=== PATIENT | male | born 1985 | race Caucasian/White ===

== ENCOUNTER 2018-07-29 04:04 | Inpatient (IN) | payer SELFPAY ==
--- NOTE | 2018-07-29 04:19 | ED PDOC ---
Arrival/HPI - General Chief Complaint: Altered Mental Status Time Seen by Provider: 07/29/18 04:07 Historian: Patient, Spouse, EMS - History of Present Illness Narrative History of Present Illness (Text): 07/29/18 04:27 33 year old male, with no significant past medical history, who presents to the emergency department BIB EMS for seizure episode. Per , patient had been fasting for Ramadan and was complaining of headache late in the evening. She reports they were driving back from [facility] when he suddenly had a generalized seizure episode, in which she pulled over and called the ambulance. She reports after the seizure episode, he became confused, disoriented and could not recognize her. She denies any history of trauma. Symptom Onset: Gradual Symptom Course: Unchanged Activities at Onset: Light Context: Passenger Past Medical History - Provider Review Nursing Documentation Reviewed: Yes - Infectious Disease Hx of Infectious Diseases: None - Psychiatric Hx Substance Use: No Family/Social History - Physician Review Nursing Documentation Reviewed: Yes Family/Social History: Unknown Family HX Smoking Status: Heavy Smoker > 10 Cigarettes Daily Hx Alcohol Use: No Hx Substance Use: No Allergies/Home Meds Allergies/Adverse Reactions: Allergies No Known Allergies Allergy (Verified 07/29/18 04:16) Home Medications: Home Meds Medication Instructions Recorded Confirmed No Known Home Med 07/29/18 07/29/18 Review of Systems - Review of Systems Systems not reviewed;Unavailable: Other (Patient unable to respond) Physical Exam Vital Signs Reviewed: Yes Temperature: Afebrile Blood Pressure: Normal Pulse: Tachycardic Respiratory Rate: Normal Appearance: Positive for: Non-Toxic, Uncomfortable Pain Distress: None Mental Status: Positive for: Confused, other (Disoriented ) - Systems Exam Head: Present: Atraumatic, Normocephalic Pupils: Present: PERRL Extroacular Muscles: Present: EOMI Conjunctiva: Present: Normal Ears: Present: NORMAL TM Mouth: Present: Moist Mucous Membranes, Other (abrasions) Neck: Present: Normal Range of Motion Respiratory/Chest: Present: Clear to Auscultation, Good Air Exchange. No: Respiratory Distress, Accessory Muscle Use Cardiovascular: Present: Normal S1, S2, Tachycardic. No: Murmurs Abdomen: No: Tenderness, Distention, Peritoneal Signs Back: Present: Normal Inspection Upper Extremity: Present: Normal Inspection. No: Cyanosis, Edema Lower Extremity: Present: Normal Inspection. No: Edema Neurological: Present: CN II-XII Intact, Speech Normal, Motor Func Grossly Intact, Normal Sensory Function Skin: Present: Warm, Dry, Normal Color. No: Rashes Medical Decision Making ED Course and Treatment: 07/29/18 04:18 Impression: 33 year old male presents to the ED BIB ambulance for seizure episode. Differential Diagnosis included but are not limited to: Plan: -- CT Head -- EKG -- Labs -- Chest X-ray -- Ativan -- Iv fluids -- Reassess and disposition Prior Visits: Notes and results from previous visits were reviewed. Progress Notes: 07/29/18 04:24 Patient had a grand mal seizure episode in the ER. 07/29/18 04:48 EKG- Sinus [id number]@ [id number],no acute changes 07/29/18 04:49 CXR- No acute process 07/29/18 05:09 CT Head reviewed by radiologist TECHNIQUE: Axial and reformatted sagittal and coronal images of the brain obtained without IV contrast administration. Findings: Normal size of the ventricles and extra-axial spaces for the patient's age. Normal white matter tracts of the supratentorial brain. Normal basal ganglia and thalami. Normal brainstem. Normal cerebellum. There is no demonstrated extra-axial, intraparenchymal, or intraventricular hemorrhage. There are no findings of an acute ischemic infarction. Normal calvarium. There is no demonstrated fracture. Normal soft tissue structures. Normal visualized paranasal sinuses. IMPRESSION: Normal unenhanced CT scan of the brain. 07/29/18 05:17 Case was discussed with the senior medical transcriptionist and house MD Howell. - Scribe Statement The provider has reviewed the documentation as recorded by the Scribe [facility] All medical record entries made by the Scribe were at my direction and personally dictated by me. I have reviewed the chart and agree that the record accurately reflects my personal performance of the history, physical exam, medical decision making, and the department course for this patient. I have also personally directed, reviewed, and agree with the discharge instructions and disposition. Disposition/Present on Arrival - Present on Arrival Any Indicators Present on Arrival: No History of DVT/PE: No History of Uncontrolled Diabetes: No Urinary Catheter: No History of Decub. Ulcer: No History Surgical Site Infection Following: None - Disposition Have Diagnosis and Disposition been Completed?: Yes Diagnosis: New onset seizure, Altered mental status Disposition: HOSPITALIZED Disposition Time: 05:17 Patient Plan: Admission Condition: STABLE Referrals: PCP,NO [Primary Care Provider] - Follow up with primary Forms: [place] (Thai)
[2018-07-29] MEDS ORDERED: Fosphenytoin 1,000 MG in Sodium Chloride 0.9% 50 ML IV STA (04:26)
[2018-07-29 04:39] LABS: INR 0.91; PARTIAL THROMBOPLASTIN TIME 32.1 Seconds (26.9-38.3); PROTHROMBIN TIME 10.1 SECONDS (9.4-12.5)
[2018-07-29 05:10] LABS: HEMOGLOBIN 17.9 g/dL (14.0-18.0); MEAN CELL VOLUME 85.3 fl (80.0-105.0); MEAN CORPUSCULAR HEMOGLOBIN 29.9 pg (25.0-35.0); MEAN CORPUSCULAR HGB CONC 35.1 g/dl (31.0-37.0); MEAN PLATELET VOLUME 10.1 fl (7.0-11.0); RBC 5.98 10^6/uL (3.5-6.1); RED CELL DISTRIBUTION WIDTH 12.4 % (11.5-14.5); WHITE BLOOD COUNT 14.3 10^3/uL (4.5-11.0)
[2018-07-29 05:36] LABS: BLOOD UREA NITROGEN 23 mg/dL (7-21); CALCIUM 9.1 mg/dL (8.4-10.5); GFR NON-AFRICAN AMERICAN > 60
[2018-07-29] MEDS ORDERED: Sodium Chloride 0.9% 1,000 ML IV STA (05:43)
[2018-07-29] MEDS ORDERED: Sodium Chloride 0.9% 1,000 ML IV SCH (05:45)
--- NOTE | 2018-07-29 06:31 | CP.PCM.HP ---
<Julien Jones - Last Filed: 07/29/18 07:20> History of Present Illness - History of Present Illness History of Present Illness: HISTORY & PHYSICAL NOTE FOR HOSPITALIST SERVICE JULIEN JONES PGY1 33 y/o M with no significant PMH presents to ED after new onset witnessed seizure brought in by jairo. 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 Pt had not ate/drank anything all day and had broken his fast around 8pm. He slept for about 3 hours and then awoke. When he awoke, he complained of headache, when fikalie had given him ibuprofen. Pt was subsquently called in for a case. Pt's fiance was driving him to work around 1am when she noticed that pt had become non-responsive and subsequently had tonic-clonic convulsions of his extremities. She noticed foaming of the mouth and tongue biting. No urinary/bowel incontinence was noted. Jairo had subsequently driven to [facility] ED. In ED, patient remained post-ictal, He had received ativan and phosphenytoin in ED. Upon interview, pt was restless and unable to provide ROS. PMH: None All: NKDA PSH: none SH: smokes cigarettes regulary, no ETOH, drug use Hosp: none FH: M: HTN, F: HTN, DM2 Meds: none PMD: None Present on Admission - Present on Admission Any Indicators Present on Admission: No Review of Systems - Review of Systems Review of Systems: per HPI Past Patient History - Infectious Disease Hx of Infectious Diseases: None - Past Social History Smoking Status: Heavy Smoker > 10 Cigarettes Daily - PSYCHIATRIC Hx Substance Use: No Meds Allergies/Adverse Reactions: Allergies Allergy/AdvReac Type Severity Reaction Status Date / Time No Known Allergies Allergy Verified 07/29/18 04:16 Physical Exam - Constitutional Appears: Agitated, Confused - Head Exam Head Exam: NORMAL INSPECTION, NORMOCEPHALIC - Eye Exam Eye Exam: PERRL - ENT Exam ENT Exam: Mucous Membranes Dry Additional comments: healing tongue ulcers - Neck Exam Neck exam: Positive for: Normal Inspection - Respiratory Exam Respiratory Exam: Clear to Auscultation Bilateral, NORMAL BREATHING PATTERN - Cardiovascular Exam Cardiovascular Exam: REGULAR RHYTHM, +S1, +S2 - GI/Abdominal Exam GI & Abdominal Exam: Soft. absent: Tenderness - Extremities Exam Extremities exam: Positive for: normal inspection. Negative for: calf tenderness - Back Exam Back exam: NORMAL INSPECTION. absent: CVA tenderness (L), CVA tenderness (R) - Neurological Exam Neurological exam: Altered - Psychiatric Exam Psychiatric exam: Agitated - Skin Skin Exam: Dry, Warm Results - Vital Signs Recent Vital Signs: Last Vital Signs Temp 98.0 F 07/29/18 04:21 Pulse 98 H 07/29/18 05:54 Resp 24 07/29/18 05:54 BP 124/82 07/29/18 05:54 Pulse Ox 97 07/29/18 05:54 - Labs Result Diagrams: 07/29/18 04:58 07/29/18 04:58 Labs: Laboratory Results - last 24 hr 07/29/18 07/29/18 07/29/18 04:15 04:58 04:58 WBC 14.3 H RBC 5.98 Hgb 17.9 Hct 51.0 MCV 85.3 MCH 29.9 MCHC 35.1 RDW 12.4 Plt Count 237 MPV 10.1 PT 10.1 INR 0.91 APTT 32.1 BUN 23 H Creatinine 1.2 Est GFR ( Amer) > 60 Est GFR (Non-Af Amer) > 60 Random Glucose 106 Calcium 9.1 Total Bilirubin 0.9 Total Creatine Kinase 181 Alcohol, Quantitative 07/29/18 04:58 WBC RBC Hgb Hct MCV MCH MCHC RDW Plt Count MPV PT INR APTT BUN Creatinine Est GFR ( Amer) Est GFR (Non-Af Amer) Random Glucose Calcium Total Bilirubin Total Creatine Kinase Alcohol, Quantitative < 10 Assessment & Plan - Assessment and Plan (Free Text) Assessment: 33 y/o M with no PMH presenting for new-onset seizure Plan: New Onset Seizure currently post-ictal. CTH: negative s/p 4mg Ativan in ED. Fosphenytoin in ED continue ativan 2Q4 prn adminster 1L IVF bolus continue maintainence IVF @100mls/hr f/u EEG, Utox seizure/aspiration precautions Neurology consulted DVT/GI PPx: SCD/Protonix Case reviewed with attending physician, Dr. Stewart <Pranay Stewart - Last Filed: 07/29/18 10:17> Results - Vital Signs Recent Vital Signs: Last Vital Signs Temp 98.0 F 07/29/18 04:21 Pulse 98 H 05/07/19 05:54 Resp 24 07/29/18 05:54 BP 124/82 07/29/18 05:54 Pulse Ox 97 07/29/18 05:54 - Labs Result Diagrams: 07/29/18 04:58 07/29/18 04:58 Labs: Laboratory Results - last 24 hr 07/29/18 07/29/18 07/29/18 04:10 04:10 04:15 WBC RBC Hgb Hct MCV MCH MCHC RDW Plt Count MPV PT 10.1 INR 0.91 APTT 32.1 Sodium Potassium Chloride Carbon Dioxide Anion Gap BUN Creatinine Est GFR ( Amer) Est GFR (Non-Af Amer) Random Glucose Calcium Phosphorus Magnesium Total Bilirubin AST ALT Alkaline Phosphatase Lactate Dehydrogenase Total Creatine Kinase Troponin I Total Protein Albumin Globulin Albumin/Globulin Ratio Urine Color Yellow Urine Appearance Clear Urine pH 6.0 Ur Specific [place] 1.025 Urine Protein Trace H Urine Glucose (UA) Negative Urine Ketones Negative Urine Blood Negative Urine Nitrate Negative Urine Bilirubin Negative Urine Urobilinogen 0.2 Ur Leukocyte Esterase Trace H Urine RBC 0 - 2 Urine WBC 2 - 5 Ur Epithelial Cells 1 - 3 Urine Bacteria Few Urine Opiates Screen Negative Urine Methadone Screen Negative Ur Barbiturates Screen Negative Ur Phencyclidine Scrn Negative Ur Amphetamines Screen Negative U Benzodiazepines Scrn Negative U Oth Cocaine Metabols Negative U Cannabinoids Screen Negative Alcohol, Quantitative 07/29/18 07/29/18 07/29/18 04:58 04:58 04:58 WBC 14.3 H RBC 5.98 Hgb 17.9 Hct 51.0 MCV 85.3 MCH 29.9 MCHC 35.1 RDW 12.4 Plt Count 237 MPV 10.1 PT INR APTT Sodium 142 Potassium 4.5 Chloride 104 Carbon Dioxide 13 L Anion Gap 29 H BUN 23 H Creatinine 1.2 Est GFR ( Amer) > 60 Est GFR (Non-Af Amer) > 60 Random Glucose 106 Calcium 9.1 Phosphorus Magnesium Total Bilirubin 0.9 AST 61 H ALT 23 Alkaline Phosphatase 70 Lactate Dehydrogenase 832 H Total Creatine Kinase 181 Troponin I < 0.01 Total Protein 8.8 H Albumin 5.2 H Globulin 3.6 Albumin/Globulin Ratio 1.5 Urine Color Urine Appearance Urine pH Ur Specific [place] Urine Protein Urine Glucose (UA) Urine Ketones Urine Blood Urine Nitrate Urine Bilirubin Urine Urobilinogen Ur Leukocyte Esterase Urine RBC Urine WBC Ur Epithelial Cells Urine Bacteria Urine Opiates Screen Urine Methadone Screen Ur Barbiturates Screen Ur Phencyclidine Scrn Ur Amphetamines Screen U Benzodiazepines Scrn U Oth Cocaine Metabols U Cannabinoids Screen Alcohol, Quantitative < 10 07/29/18 07/29/18 04:58 04:58 WBC RBC Hgb Hct MCV MCH MCHC RDW Plt Count MPV PT INR APTT Sodium Potassium Chloride Carbon Dioxide Anion Gap BUN Creatinine Est GFR ( Amer) Est GFR (Non-Af Amer) Random Glucose Calcium Phosphorus 5.1 H Magnesium 2.5 H Total Bilirubin AST ALT Alkaline Phosphatase Lactate Dehydrogenase Total Creatine Kinase 185 Troponin I Total Protein Albumin Globulin Albumin/Globulin Ratio Urine Color Urine Appearance Urine pH Ur Specific [place] Urine Protein Urine Glucose (UA) Urine Ketones Urine Blood Urine Nitrate Urine Bilirubin Urine Urobilinogen Ur Leukocyte Esterase Urine RBC Urine WBC Ur Epithelial Cells Urine Bacteria Urine Opiates Screen Urine Methadone Screen Ur Barbiturates Screen Ur Phencyclidine Scrn Ur Amphetamines Screen U Benzodiazepines Scrn U Oth Cocaine Metabols U Cannabinoids Screen Alcohol, Quantitative Attending/Attestation - Attestation I have personally seen and examined this patient.: Yes I have fully participated in the care of the patient.: Yes I have reviewed all pertinent clinical information: Yes
[2018-07-29 06:43] LABS: URINE BILIRUBIN NEGATIVE (NEGATIVE); URINE BLOOD NEGATIVE (NEGATIVE); URINE GLUCOSE (UA) NEGATIVE (NEGATIVE); URINE LEUKOCYTE ESTERASE TRACE Leu/uL (NEGATIVE); URINE PROTEIN TRACE mg/dL (<30 mg/dL); URINE UROBILINOGEN 0.2 E.U./dL (<1 E.U./dL)
[2018-07-29 06:44] LABS: ALB/GLOB RATIO 1.5 (1.1-1.8); ALBUMIN 5.2 g/dL (3.0-4.8); ALT/SGPT 23 U/L (7-56); AST/SGOT 61 U/L (17-59); TROPONIN I < 0.01 ng/mL
[2018-07-29 06:45] LABS: BARBITURATES, UR NEGATIVE (NEGATIVE); BENZODIAZEPINES, UR NEGATIVE (NEGATIVE); OPIATES, UR NEGATIVE (NEGATIVE); PHENCYCLIDINE, UR NEGATIVE (NEGATIVE)
[2018-07-29 06:49] LABS: URINE APPEARANCE CLEAR (CLEAR); URINE COLOR YELLOW (YELLOW)
[2018-07-29 06:56] LABS: URINE BACTERIA FEW /hpf; URINE RBC 0 - 2 /hpf (0-2)
--- NOTE | 2018-07-29 08:55 | CARD ---
APPROVED REPORT Date of service: 07/29/2018 EKG Measurement Heart [id number] <Conclusion> Sinus tachycardia Otherwise normal ECG
--- NOTE | 2018-07-29 09:08 | RAD ---
Date of service: 07/29/2018 PROCEDURE: CHEST RADIOGRAPH, 1 VIEW HISTORY: seizure/ams COMPARISON: None available. FINDINGS: LUNGS: Clear. PLEURA: No pneumothorax or pleural fluid seen. CARDIOVASCULAR: No aortic atherosclerotic calcification present. Normal. OSSEOUS STRUCTURES: No significant abnormalities. VISUALIZED UPPER ABDOMEN: Normal. OTHER FINDINGS: None. IMPRESSION: No active disease.
--- NOTE | 2018-07-29 09:10 | CT ---
Date of service: 07/29/2018 PROCEDURE: CT HEAD WITHOUT CONTRAST. HISTORY: seizure/ams COMPARISON: None available. TECHNIQUE: Axial computed tomography images were obtained through the head/brain without intravenous contrast. Radiation dose: Total exam DLP = 819.63 mGy-cm. This CT exam was performed using one or more of the following dose reduction techniques: Automated exposure control, adjustment of the mA and/or kV according to patient size, and/or use of iterative reconstruction technique. FINDINGS: HEMORRHAGE: No intracranial hemorrhage. BRAIN: No mass effect or edema. No atrophy or chronic microvascular ischemic changes. VENTRICLES: Unremarkable. No hydrocephalus. CALVARIUM: Unremarkable. PARANASAL SINUSES: Unremarkable as visualized. No significant inflammatory changes. MASTOID AIR CELLS: Unremarkable as visualized. No inflammatory changes. OTHER FINDINGS: The report concurs with the preliminary [facility] report IMPRESSION: No acute intracranial findings
[2018-07-29] MEDS ORDERED: levETIRAcetam 1000mg/100ml NS 100 ML IV ONE (09:14)
[2018-07-29] MEDS ORDERED: Gadodiamide 287 MG/ML VIAL (15ML) IV ONE (10:58)
--- NOTE | 2018-07-29 12:08 | RAD ---
Date of service: 07/29/2018 PROCEDURE: Radiographs of the Left Shoulder HISTORY: shoulder pain COMPARISON: No prior. TECHNIQUE: 3 views obtained. FINDINGS: BONES: There is a comminuted fracture of the scapula with vertical and transverse components. JOINTS: Normal. Glenohumeral and acromioclavicular joints preserved. No osteoarthritis. SOFT TISSUES: Normal. OTHER FINDINGS: None. IMPRESSION: There is a comminuted fracture of the scapula with vertical and transverse components.
--- NOTE | 2018-07-29 12:22 | MRI ---
Date of service: 07/29/2018 PROCEDURE: MRI BRAIN WITH AND WITHOUT CONTRAST HISTORY: New Onset Seizure COMPARISON: None available. TECHNIQUE: Multiplanar, multisequence MR images of the brain were obtained with and without intravenous contrast enhancement. 15 cc of Omniscan FINDINGS: HEMORRHAGE: None DWI: No evidence of an acute or early subacute infarction. BRAIN PARENCHYMA: No mass,mass effect or edema. No atrophy or chronic microvascular ischemic changes. ENHANCEMENT: No abnormal intracranial enhancement. VENTRICLES: Unremarkable. No hydrocephalus. CRANIUM: Unremarkable. ORBITS: Grossly unremarkable. PARANASAL SINUSES/MASTOIDS: Clear VASCULAR SYSTEM: Skull base flow voids intact. OTHER FINDINGS: None . IMPRESSION: Unremarkable pre and post contrast enhanced MRI of the brain.
--- NOTE | 2018-07-29 12:24 | MRI ---
Date of service: 07/29/2018 PROCEDURE: Magnetic Resonance Angiography Brain HISTORY: SEIZURE COMPARISON: None available. TECHNIQUE: 3D time of flight MR angiography of the intracranial arteries was performed. Rotating maximum intensity projection images were generated. FINDINGS: INTERNAL CAROTID ARTERIES: Unremarkable. The skull base, petrous, cavernous and supraclinoid segments are bilaterally widely patient. ANTERIOR CEREBRAL ARTERIES: Unremarkable. A1 and A2 segments are widely patent. Smaller distal branches unremarkable, as visualized. MIDDLE CEREBRAL ARTERIES: Unremarkable. M1 and M2 segments are widely patent. Perisylvian branches grossly symmetric. POSTERIOR CIRCULATION: Basilar Artery: Unremarkable. Distal Vertebral Arteries: Unremarkable. Posterior Cerebral Arteries: Unremarkable. Posterior Inferior Cerebellar Arteries: Unremarkable. ANEURYSM/ VASCULAR MALFORMATIONS: None. OTHER FINDINGS: None. IMPRESSION: Unremarkable MR angiography of the brain.
--- NOTE | 2018-07-29 14:46 | PN ---
DATE: 07/29/2018 SUBJECTIVE: The patient was admitted late in the night under the hospitalist service, now transferred to my service as I was operations controller for the emergency room for Medicine, but the patient was admitted to hospitalist service despite the patient having insurance. The patient was transferred by the hospitalist to operations controller Medicine Service. The patient is seen and examined in the emergency room bed 4. The patient is seen lying in the bed. The patient is postictal, but arousable, responsive to verbal, painful stimuli by stating his name, place and where he works and where he is right now. PHYSICAL EXAMINATION: VITAL SIGNS: T-max 98.1, heart rate 98-114-111, blood pressure 124/82, respiration 24, O2 sat 97%. HEENT: Head examination normocephalic, atraumatic. HEENT examination shows positive tongue bite mary noted. No facial asymmetry noted. Dry oral mucosa. No neck rigidity. CHEST: Symmetrical. LUNGS: Shows no audible crackle, rales or wheezing. CARDIOVASCULAR: S1, S2. Regular rhythm. ABDOMEN: Soft, positive bowel sound. No palpable hepatosplenomegaly. GENITALIA: Male. RECTAL: Deferred. EXTREMITIES: Decreased range of motion of the left upper extremity with complaints of the left shoulder pain. Lower extremity shows no pitting edema, no calf tenderness, no Homans' sign. NEUROLOGIC: The patient is arousable, lethargic, postictal but opening eyes to painful, verbal stimuli. Moves upper and lower extremity without assistance. Gait examination is not tested. The patient is seen lying in the bed. DIAGNOSTICS: WBC 14.3. PT/PTT is normal. Chemistry shows anion gap of 29, BUN 23, phosphorus 5.1, magnesium 2.5, AST 61. Troponin is negative. CPK is negative. Thyroid panel is negative. Urinalysis shows trace protein, trace leukocyte esterase, few bacteria. Urine drug screen is negative. Alcohol level negative. The patient's shoulder x-ray, MRI/MRA of the brain, CT scan of the head, chest x-ray all reviewed. The patient's EKG was also reviewed which is done. The patient was seen in the emergency room by the ER physician. The patient was admitted initially under the hospitalist service. IMPRESSION: 1. New-onset witnessed seizure with generalized seizure with postictal state. 2. Left scapular comminuted fracture with vertical and transverse component. 3. Postictal state. 4. Witnessed generalized seizure with tongue biting. 5. Tachycardia. 6. Sinus tachycardia. 7. Postictal state with lethargy. 8. Leukocytosis probably reactive. 9. Questionable increased anion gap metabolic acidosis. 10. Prerenal kidney injury. 11. Trace proteinuria and pyuria and bacteriuria. 12. Witnessed seizure with foaming of the mouth and tongue biting. 13. Most likely new-onset seizure disorder or seizure. PLAN: At this time, the patient is awaiting Neurology evaluation. Repeat labs have been ordered; repeat CBC, CMP, LFT, magnesium, phosphorous ordered. Lyme titers ordered. The patient was ordered in the ER blood and urine cultures. Current consultation Neurology and Orthopedics. RPR, Lyme titers are ordered. The patient is currently on Ativan 2 mg IV every 4 hours p.r.n. The patient received Celebrex 1000 mg one dose. The patient given a dose of Keppra 1000 mg also by the neurologist. The patient is on Ringer's lactate at 100 ml an hour, Protonix 40 IV every 12 hours. The patient is on Tylenol 650 mg p.o. suppository every 6 hours p.r.n., Zofran 4 mg IV every 4 hours p.r.n. The patient has been ordered, EEG and video EEG monitoring. The patient has been ordered GI/DVT prophylaxis. The patient has been ordered seizure precaution, aspiration precaution, head of the bed at 30 degrees. At present we are awaiting further recommendations by Orthopedics and Neurology. We are awaiting for EEG. We are awaiting for further diagnostic therapeutic interventions and data. The patient's further management will be dependent upon the patient's clinical condition, hemodynamic status as per the patient response to therapeutic intervention as per the patient's diagnostic test results and as per recommendation by all the physicians involved in the care of the patient. Dictated and electronically signed, not read. Naman Lilly MD
[2018-07-29 17:24] LABS: FOLATE 13.8 ng/mL
[2018-07-29] MEDS: Lactated Ringer's 1,000 ML IV SCH ×2 (17:56→22:37)
[2018-07-29 19:48] VITALS: BMI 27.8
[2018-07-29 21:24] LABS: LYME IGG NEGATIVE (NEGATIVE)
[2018-07-29 21:28] LABS: LYME IGM NEGATIVE (NEGATIVE)
[2018-07-30] MEDS ORDERED: Morphine 2 mg/ml ISec IVP STA (05:14)
--- NOTE | 2018-07-30 08:11 | CP.PCM.CON ---
History of Present Illness - History of Present Illness History of Present Illness: Neurology consult dictated residential coordinator who had several seizures of unknown etiology and is now admitted for VEEG to assess for etiology of epilepsy. MRI Brain and MRA is normal. VEEG pending. ON keppra 500 mg po bid PLan; 1. COntinue VEEG for 24 hours 2. Continue Keppra [address] Soto Neurology Past Patient History - Infectious Disease Hx of Infectious Diseases: None - Past Social History Smoking Status: Current Some Days Smoker - CARDIAC Hx Cardiac Disorders: No - PULMONARY Hx Respiratory Disorders: No - NEUROLOGICAL Hx Neurological Disorder: No - HEENT Hx HEENT Problems: No - RENAL Hx Chronic Kidney Disease: No - ENDOCRINE/METABOLIC Hx Endocrine Disorders: No - HEMATOLOGICAL/ONCOLOGICAL Hx Blood Disorders: No - INTEGUMENTARY Hx Dermatological Problems: No - MUSCULOSKELETAL/RHEUMATOLOGICAL Hx Musculoskeletal Disorders: No Hx Falls: No - GASTROINTESTINAL Hx Gastrointestinal Disorders: No - GENITOURINARY/GYNECOLOGICAL Hx Genitourinary Disorders: No - PSYCHIATRIC Hx Psychophysiologic Disorder: No Hx Substance Use: No - SURGICAL HISTORY Hx Surgeries: No Meds Allergies/Adverse Reactions: Allergies Allergy/AdvReac Type Severity Reaction Status Date / Time No Known Allergies Allergy Verified 07/29/18 04:16 - Medications Medications: Current Medications Acetaminophen (Tylenol 325mg Tab) 650 mg PO Q6 PRN PRN Reason: TEMP>=99.5F Acetaminophen (Tylenol 650 Mg Supp) 650 mg RC Q6H PRN PRN Reason: TEMP>=99.5F Last Admin: 07/29/18 17:48 Dose: 650 mg Heparin Sodium (Porcine) (Heparin) 5,000 units SC Q8 FRANKIE; Protocol Last Admin: 07/30/18 06:06 Dose: 5,000 units Lactated Ringer's (Lactated Ringer's) 1,000 mls @ 100 mls/hr IV .Q10H FRANKIE Last Admin: 07/29/18 22:37 Dose: 100 mls/hr Ketorolac Tromethamine (Toradol) 30 mg IVP Q8H PRN PRN Reason: Pain, moderate (4-7) Last Admin: 07/30/18 07:49 Dose: 30 mg Lorazepam (Ativan) 1 mg IVP Q4H PRN; Protocol PRN Reason: Seizure activity Ondansetron HCl (Zofran Inj) 4 mg IVP Q4H PRN PRN Reason: Nausea/Vomiting Pantoprazole Sodium (Protonix Inj) 40 mg IVP Q12 FRANKIE Last Admin: 07/29/18 22:36 Dose: 40 mg Results - Vital Signs Recent Vital Signs: Last Vital Signs Temp 98.2 F 07/30/18 06:00 Pulse 92 H 07/30/18 06:00 Resp 20 07/30/18 06:00 BP 116/74 07/30/18 06:00 Pulse Ox 95 07/30/18 06:00 - Labs Result Diagrams: 07/29/18 04:58 07/29/18 04:58 Labs: Laboratory Results - last 24 hr 07/29/18 07/29/18 07/29/18 09:12 09:13 09:13 Vitamin B12 561 Folate 13.8 Free T4 Thyroxine (T4) TSH 3rd Generation RPR Nonreactive Lyme Disease IgG Ab (IFA) Negative Lyme Disease IgM Ab Negative 07/29/18 09:14 Vitamin B12 Folate Free T4 1.00 Thyroxine (T4) 7.6 TSH 3rd Generation 4.34 RPR Lyme Disease IgG Ab (IFA) Lyme Disease IgM Ab
[2018-07-30 08:28] LABS: BASO # 0.02 K/mm3 (0.0-2.0); BASO % 0.3 % (0.0-3.0); EOS # 0.1 (0.0-0.7); EOS % 1.8 % (1.5-5.0); LYMPH % 25.2 % (22.0-35.0); MEAN CELL VOLUME 82.7 fl (80.0-105.0); MEAN CORPUSCULAR HGB CONC 35.1 g/dl (31.0-37.0); MEAN PLATELET VOLUME 9.7 fl (7.0-11.0); MONO # 0.6 (0.1-0.6); MONO % 7.4 % (1.0-6.0); RBC 5.2 10^6/uL (3.5-6.1); RED CELL DISTRIBUTION WIDTH 12.3 % (11.5-14.5); WHITE BLOOD COUNT 7.8 10^3/uL (4.5-11.0)
[2018-07-30 08:31] LABS: HEMOGLOBIN 15.1 g/dL (14.0-18.0)
[2018-07-30 08:35] LABS: ALB/GLOB RATIO 1.3 (1.1-1.8); ALBUMIN 3.6 g/dL (3.0-4.8); ALT/SGPT 39 U/L (7-56); AST/SGOT 131 U/L (17-59); BILIRUBIN,DIRECT 0.1 mg/dL (0.0-0.4); BLOOD UREA NITROGEN 14 mg/dL (7-21); CALCIUM 8.1 mg/dL (8.4-10.5); GFR NON-AFRICAN AMERICAN > 60
--- NOTE | 2018-07-30 09:10 | PCM.VEEG ---
Video EEG - Procedure Start Date: 07/29/18 Start Time: 16:35 End Date: 07/30/18 End Time: 08:50 Technical Summary: DATA ACQUISITION: This was a multichannel inpatient video-EEG, a minimum of 22 channels were uti lized, performed in accordance with recommendations specified by the [place] [employer] (Yina Medrano et al. ACNS Guideline 1: Minimum Technical Requirements for Performing Clinical Electroencephalography. Journal of Clinical Neurophysiology 2016;33:303-7). The 10-20 electrode placement system was utilized in accordance with guidelines detailed by the International Federation of Clinical Neurophysiology (Amber Conley et al. The Ten-Twenty Electrode System of the International Federation. Recommendations for the Practice of Clinical Neurophysiology: Guidelines of the International Federation of Clinical Physiology 1999; EEG Suppl. 52.). DATA REVIEW / SPIKE DETECTION / DIGITAL ANALYSIS: The entire EEG was scanned and reviewed. Synchronized audio and video recording were reviewed at the time of each alarm and whenever an abnormality or suspicious activity was noted. The entire recording was analyzed utilizing an automated digital spike and seizure analysis program and all automatic spike and seizure detections were manually reviewed. A compressed spectral array was displayed and reviewed alongside the raw EEG tracings. In addition, further analysis of the EEG was performed when abnormalities were identified, including montage changes, dipole source localization, and frequency band identification. Video portion of the study is necessary to correlate abnormal EEG activity with clinical behavior. This study was attended 24 hours per day. - Interpretation Description of the study: Indication; epilepsy EEG Finding during wakefulness: During active states, the EEG was characterized by 14-25 Hz, 15-30 uV activity bilaterally in fronto-central regions. Resting wakefulness was characterized by a symmetric posterior dominant rhythm of 9-10 Hz, 30-50 uV, which was reactive to eye opening and closing. Drowsiness was associated with slow roving eye movements, slowing and fragmentation of the posterior dominant rhythm, and bilateral 4-7 Hz, 40-70 uV theta activity, sometimes with a shifting predominance. There were no significant asymmetries noted during wakefulness. Hyperventilation was not performed Photic stimulation was not performed. EEG Finding during sleep: Light sleep was recorded and was characterized by fronto-central slowing at 5-7 H, 50-125 uV, sharp central vertex waves, bilateral sleep spindles, and K- complexes; shifting asymmetries were evident. Deeper stages of sleep were recorded and were characterized an increasing frequency of 1-4 Hz, 50-100 uV delta activity. REM sleep was also recorded and was characterized by mixed frequency (3-15 Hz) low voltage (< 20 uV) activity with clusters of rapid horizontal and vertical eye movements. There were no significant asymmetries noted during sleep. Interictal non-epileptiform abnormalities: None Interictal epileptiform abnormalities: Through the test there were occasional bursts of generalized mid amplitude spikes and poly-spikes with after going slow waves at 4.5 to 5.5 Hz, seen mainly during drowsiness occasional during wakefulness, lasting less than 1 second. Ictal epileptiform abnormalities: None - Impression Impression: This is an abnormal video-EEG monitoring study due to the presence of; 1-Normal awake/sleep architecture. 2-No seizures were recorded. 3-Generalized interictal epileptiform discharges at 4.5 to 5.5 Hz., lasting less than 1 second. 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
[2018-07-30] MEDS ORDERED: levETIRAcetam 500mg IVPB 500 MG/100 ML BAG IVPB SCH (10:00)
[2018-07-30] MEDS: Lidocaine 5% Patch TD SCH (11:56)
--- NOTE | 2018-07-30 11:57 | CP.PCM.PN ---
<Terese Richards - Last Filed: 07/30/18 11:58> Subjective - Date & Time of Evaluation Date of Evaluation: 07/30/18 Time of Evaluation: 10:50 - Subjective Subjective: Terese Richards DO, PGY-2: Progress Note for Dr. Lilly Patient was seen and examined at bedside. present as well at bedside. Patient reports having pain in the left scapulae region and feeling general malaise. Nurse reports no seizure activity noted in interim. He denies nausea, vomiting, fever, or chills. Objective - Vital Signs/Intake and Output Vital Signs (last 24 hours): Temp Pulse Resp BP Pulse Ox 98.2 F 92 H 20 116/74 95 07/30/18 06:00 07/30/18 06:00 07/30/18 06:00 07/30/18 06:00 07/30/18 06:00 Intake and Output: 07/30/18 07/30/18 06:59 18:59 Intake Total 1840 Balance 1840 - Medications Medications: Current Medications Acetaminophen (Tylenol 325mg Tab) 650 mg PO Q6 PRN PRN Reason: TEMP>=99.5F Last Admin: 07/29/18 23:45 Dose: 650 mg Acetaminophen (Tylenol 650 Mg Supp) 650 mg RC Q6H PRN PRN Reason: TEMP>=99.5F Last Admin: 07/29/18 17:48 Dose: 650 mg Heparin Sodium (Porcine) (Heparin) 5,000 units SC Q8 FRANKIE; Protocol Last Admin: 07/30/18 06:06 Dose: 5,000 units Lactated Ringer's (Lactated Ringer's) 1,000 mls @ 100 mls/hr IV .Q10H FRANKIE Last Admin: 07/29/18 22:37 Dose: 100 mls/hr Levetiracetam (Keppra 500mg Ivpb) 500 mg in 100 mls @ 215 mls/hr IVPB Q12 FRANKIE Last Admin: 07/30/18 09:44 Dose: 215 mls/hr Ketorolac Tromethamine (Toradol) 30 mg IVP Q8H PRN PRN Reason: Pain, moderate (4-7) Last Admin: 07/30/18 07:49 Dose: 30 mg Lidocaine (Lidoderm) 1 ea TD DAILY FRANKIE Lorazepam (Ativan) 1 mg IVP Q4H PRN; Protocol PRN Reason: Seizure activity Last Admin: 07/29/18 23:45 Dose: 1 mg Nicotine (Nicoderm Cq) 1 patch TD DAILY [facility] Ondansetron HCl (Zofran Inj) 4 mg IVP Q4H PRN PRN Reason: Nausea/Vomiting Pantoprazole Sodium (Protonix Inj) 40 mg IVP Q12 FRANKIE Last Admin: 07/30/18 09:44 Dose: 40 mg - Labs Labs: 07/30/18 08:15 07/30/18 08:15 PT 10.1 SECONDS (9.4-12.5) 07/29/18 04:15 INR 0.91 07/29/18 04:15 APTT 32.1 Seconds (26.9-38.3) 07/29/18 04:15 - Constitutional Appears: No Acute Distress - Head Exam Head Exam: ATRAUMATIC, NORMOCEPHALIC - Eye Exam Eye Exam: EOMI, Normal appearance - ENT Exam ENT Exam: Mucous Membranes Moist - Neck Exam Neck Exam: Normal Inspection - Respiratory Exam Respiratory Exam: NORMAL BREATHING PATTERN. absent: Accessory Muscle Use - Cardiovascular Exam Cardiovascular Exam: RRR, +S1, +S2 - GI/Abdominal Exam GI & Abdominal Exam: Soft, Normal Bowel Sounds - Extremities Exam Extremities Exam: Normal Inspection. absent: Calf Tenderness - Neurological Exam Neurological Exam: Awake, CN II-XII Intact, Oriented x3 - Psychiatric Exam Psychiatric exam: Normal Affect, Normal Mood - Skin Skin Exam: Dry, Intact, Normal Color, Warm Assessment and Plan - Assessment and Plan (Free Text) Assessment: 33 year old with no known past medical history who was brought in via EMS for generalized seizures. 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 Soto consulted - No metabolic abnormalities identified suspicious for causing seizure at this point 2) Tobacco abuse - Nicotine patch 21 mg TD 3) Comminuted fracture of left scapulae - Orthopedic consulted - Analgesia as per MAY 4) DVT/GI prophylaxis - Heparin 5000 units q8 - Protonix 40 mg q12h Case was reviewed and discussed with attending physician, Dr. Lilly <Naman Lilly - Last Filed: 08/06/18 10:32> Objective - Vital Signs/Intake and Output Vital Signs (last 24 hours): Temp Pulse Resp BP Pulse Ox 97.4 F L 56 L 20 119/73 97 08/05/18 12:00 08/05/18 12:00 08/05/18 12:00 08/05/18 12:00 08/05/18 00:01 - Labs Labs: 08/02/18 06:30 08/05/18 06:15 PT 10.1 SECONDS (9.4-12.5) 07/29/18 04:15 INR 0.91 07/29/18 04:15 APTT 32.1 Seconds (26.9-38.3) 07/29/18 04:15 Attending/Attestation - Attestation I have personally seen and examined this patient.: Yes I have fully participated in the care of the patient.: Yes I have reviewed all pertinent clinical information, including history, physical exam and plan: Yes Notes (Text): Please see/read my dictated notes.
--- NOTE | 2018-07-30 13:17 | PN ---
DATE: 07/30/2018 LOCATION: The patient is now in room 261, bed 1. SUBJECTIVE: Overnight nurse's notes were reviewed. The patient was arousable, responsive, sleeping, did complain of left shoulder pain for which the patient was given a dose of morphine with relief. The patient required a left upper extremity sling which is in place. No seizures were documented or witnessed by the nursing staff. PHYSICAL EXAMINATION: VITAL SIGNS: T-max 98.2. Telemetry shows sinus rhythm, heart rate 92, blood pressure 116/74, respirations 20, O2 sat 95%. HEENT: Head examination normocephalic, atraumatic. HEENT examination shows pinkish conjunctivae. Anicteric sclerae. No oropharyngeal lesion. No neck rigidity. CHEST: Kyphosis. Positive decreased range of motion and positive sling of the left upper extremity. CARDIOVASCULAR: S1, S2, regular rhythm. No audible murmur, gallop or rub. LUNGS: Shows no audible crackle, rales or wheezing. ABDOMEN: Soft, positive bowel sounds. No palpable hepatosplenomegaly. GENITALIA: Male. Positive Taxus catheter. EXTREMITIES: Shows no pitting edema, no calf tenderness, no Homans' sign in the lower extremity. Positive left upper extremity sling noted. NEUROLOGIC: The patient is arousable, responsive, sleepy with intermittent episodes of sleepiness and lethargy, but arousable. Gait examination is not tested. DIAGNOSTIC DATA: 07/30/2018, WBC 7.8, down from 14,000, hemoglobin/hematocrit 15.1 and 43, platelet 150. Sodium 141, potassium 2, chloride 109, CO2 46, BUN 14, creatinine 1, glucose 83, calcium 8.1, phosphorus 4.1, magnesium 3.1, AST 131. MRI, MRA of the brain, preliminary report is negative, awaiting for final report. EEG is in progress. The patient is undergoing video EEG at present. IMPRESSION AND PLAN: 1. New-onset witnessed seizure with episode of mouth foaming and tongue biting. 2. Comminuted left scapular fracture. 3. Left upper extremity pain secondary to comminuted left scapular fracture. 4. Tachycardia. 5. Leukocytosis. 6. Questionable relative thrombocytopenia. 7. Questionable transaminitis. 8. New-onset seizure disorder, etiology undetermined. 1. New-onset witnessed seizure with generalized seizure with postictal state. 2. Left scapular comminuted fracture with vertical and transverse component. 3. Postictal state. 4. Witnessed generalized seizure with tongue biting. 5. Tachycardia. 6. Sinus tachycardia. 7. Postictal state with lethargy. 8. Leukocytosis probably reactive. 9. Questionable increased anion gap metabolic acidosis. 10. Prerenal kidney injury. 11. Trace proteinuria and pyuria and bacteriuria. 12. Witnessed seizure with foaming of the mouth and tongue biting. 13. Most likely new-onset seizure disorder or seizure. PLAN: At this time, we are awaiting for the completion of the video EEG, awaiting for further Neurology recommendations, ortho evaluation has been requested. CT of the left scapula ordered by Orthopedics, results are pending. At present, the patient is recommended by Neurology for Keppra 500 twice a day. The patient is on IV fluid. The patient is on pharmacological, non-pharmacological GI, DVT prophylaxis. The patient will be continued on all the medications as per the MAR of today. The patient will be ordered physical therapy, occupational therapy, ambulation therapy, gait training once patient is more neurologically stable with left upper extremity sling. We will await further recommendations and therapeutic interventions from Neurology and Orthopedics. Dictated and electronically signed, not read. Naman Lilly MD [email or web address]
--- NOTE | 2018-07-30 13:26 | RAD ---
Date of service: 07/30/2018 PROCEDURE: Cervical Spine Radiographs. HISTORY: Pain. COMPARISON: None available. TECHNIQUE: Two views obtained. FINDINGS: BONES: Alignment maintained. No fracture. Dens Intact. DISC SPACES: Normal. SOFT TISSUES: Normal. No prevertebral soft tissue swelling. OTHER FINDINGS: None. IMPRESSION: Normal cervical spine radiographs
--- NOTE | 2018-07-30 13:28 | RAD ---
Date of service: 07/30/2018 PROCEDURE: Radiographs of the Lumbar Spine. HISTORY: R/O FX COMPARISON: No prior. TECHNIQUE: Two views obtained. FINDINGS: BONES: Normal alignment. No listhesis. No fracture. DISC SPACES: Unremarkable. OTHER FINDINGS: None. IMPRESSION: Unremarkable radiographs of the lumbar spine.
--- NOTE | 2018-07-30 13:31 | RAD ---
Date of service: 07/30/2018 HISTORY: R/O FX COMPARISON: No prior. TECHNIQUE: 2 views obtained. FINDINGS: BONES: There is a mild compression deformity of the inferior endplate of T9 DISC SPACES: Normal. SOFT TISSUES: Normal. OTHER FINDINGS: None. IMPRESSION: Mild compression deformity of T9. Age uncertain
--- NOTE | 2018-07-30 13:42 | CT ---
Date of service: 07/30/2018 PROCEDURE: LEFT SHOULDER CT WITHOUT CONTRAST HISTORY: fracture COMPARISON: Left shoulder radiographs 07/29/2018. TECHNIQUE: A volumetric CT acquisition was performed through the left shoulder without intravenous contrast for evaluation of fracture. Reformatted dataset have been provided multiple projections. Radiation dose:Total exam DLP = 500.30 mGy-cm. This CT exam was performed using one or more of the following dose reduction techniques: Automated exposure control, adjustment of the mA and/or kV according to patient size, and/or use of iterative reconstruction technique. FINDINGS: Mildly clavicle and proximal humerus appear intact, there is a comminuted fracture involving the midportion of the left scapula with impaction medially. Glenoid process is intact including the neck with no subluxation or dislocation. No acromioclavicular joint separation. No local rib fractures appreciable. Limited subcutaneous edema is appreciated at the posteromedial back/shoulder soft tissues superficially. No emphysematous soft tissue changes seen related to the scapula. IMPRESSION: Impacted comminuted fracture of the mid scapula is appreciated sparing the upper portion including the glenoid process entirely. No dislocation or subluxation. Acromioclavicular joint appears unremarkable.
[2018-07-30] MEDS ORDERED: Morphine 2 mg/ml ISec IVP PRN (14:28)
[2018-07-30] MEDS: Lactated Ringer's 1,000 ML IV SCH (14:35)
[2018-07-30] MEDS: Morphine 2 mg/ml ISec IVP PRN ×2 (15:00→19:55)
[2018-07-30] MEDS ORDERED: Lactated Ringer's 1,000 ML IV SCH (17:05)
[2018-07-30 17:12] LABS: HEPATITIS B SURFACE AG Negative (NEGATIVE)
[2018-07-30 17:18] LABS: HEPATITIS A IGM NEGATIVE (NEGATIVE); HEPATITIS B CORE AB NEGATIVE (NEGATIVE)
[2018-07-30 17:30] LABS: HEPATITIS C ANTIBODY NEGATIVE (NEGATIVE)
[2018-07-30 19:18] LABS: CK-MB 2.4 ng/mL (0.0-3.6)
[2018-07-30] MEDS ORDERED: Sodium Chloride 0.9% 1,000 ML IV SCH (20:30)
[2018-07-30] MEDS: Pantoprazole 40 mg EC Tab PO SCH (21:26)
[2018-07-31] MEDS: Morphine 2 mg/ml ISec IVP PRN ×4 (05:38→21:43)
[2018-07-31] MEDS: Sodium Chloride 0.9% 1,000 ML IV SCH ×4 (05:51→23:17)
[2018-07-31 07:04] LABS: BASO # 0.02 K/mm3 (0.0-2.0); BASO % 0.3 % (0.0-3.0); EOS # 0.3 (0.0-0.7); EOS % 3.9 % (1.5-5.0); HEMOGLOBIN 14.7 g/dL (14.0-18.0); LYMPH # 2.3 (1.2-3.4); LYMPH % 33.2 % (22.0-35.0); MEAN CELL VOLUME 83.3 fl (80.0-105.0); MEAN CORPUSCULAR HEMOGLOBIN 28.5 pg (25.0-35.0); MEAN CORPUSCULAR HGB CONC 34.3 g/dl (31.0-37.0); MEAN PLATELET VOLUME 10.3 fl (7.0-11.0); MONO # 0.4 (0.1-0.6); MONO % 6.4 % (1.0-6.0); RBC 5.15 10^6/uL (3.5-6.1); RED CELL DISTRIBUTION WIDTH 12.4 % (11.5-14.5); WHITE BLOOD COUNT 6.8 10^3/uL (4.5-11.0)
[2018-07-31] MEDS: Lidocaine 5% Patch TD SCH (09:30)
[2018-07-31] MEDS: Pantoprazole 40 mg EC Tab PO SCH ×2 (09:30→21:44)
[2018-07-31 10:03] LABS: ALB/GLOB RATIO 1.1 (1.1-1.8); ALBUMIN 3.2 g/dL (3.0-4.8); ALT/SGPT 70 U/L (7-56); AST/SGOT 473 U/L (17-59); BILIRUBIN,DIRECT 0.2 mg/dL (0.0-0.4); BLOOD UREA NITROGEN 9 mg/dL (7-21); CALCIUM 7.6 mg/dL (8.4-10.5); GFR NON-AFRICAN AMERICAN > 60
--- NOTE | 2018-07-31 10:26 | PN ---
DATE: 07/31/2018 SUBJECTIVE: The patient is seen in room 261, bed 1. Overnight nurse's notes were reviewed. No seizure activity was documented. In the last 24 hours, the patient was seen by neurologist, was a start increase the Keppra dose was increased to 750 every 12 hours IV. Repeat video EEG was recommended by the neurologist. PHYSICAL EXAMINATION: GENERAL: Patient seen and examined, lying in the bed. VITAL SIGNS: T-max 98.1. Telemetry shows normal sinus rhythm, heart rate 87, 84, 89 in mid 80s, blood pressure 101/51, respirations 20, O2 sat 95%-98%. HEENT: Head examination normocephalic, atraumatic. Eyes; examination shows pinkish pale pink conjunctivae. Anicteric sclerae. No oropharyngeal lesion. No neck rigidity. CHEST: Kyphosis. LUNGS: Shows no audible crackle, rales or wheezing. CARDIOVASCULAR: S1, S2, regular rhythm. ABDOMEN: Soft, positive bowel sound palpable hepatosplenomegaly. GENITALIA: Male. RECTAL: Deferred. EXTREMITIES: Shows no pitting edema, no calf tenderness, no Homans' sign. NEUROLOGIC: The patient is arousable, awake, responsive, alert. With increasing level of arousal ability and increasing level of alertness since the day of admission. The patient is able to move upper and lower extremity without assistance. Gait examination is not tested. Cranial nerves II-XII are limited. DIAGNOSTIC DATA: On 07/31/2018 pending. LABORATORY DATA: Overnight labs; CPK 21,394. X-ray of the cervical, thoracic, lumbar spine was done which shows T9 compression deformity. CT of the scapula was done which shows left mid scapular impacted comminuted fracture. EEG which was completed yesterday shows idiopathic generalized seizure. The patient's morning labs from today is pending, which will be reviewed when available. IMPRESSION: 1. Idiopathic generalized seizure and witnessed seizure with mouth foaming and tongue biting. 2. Rhabdomyolysis. 3. T9 compression deformity, age undetermined. 4. Left mid scapula impacted comminuted fracture. 5. Hypotension. 6. Mild normocytic anemia. 7. Deconditioning. 8. Musculoskeletal pain, probably secondary to rhabdomyolysis. 1. New-onset witnessed seizure with episode of mouth foaming and tongue biting. 2. Comminuted left scapular fracture. 3. Left upper extremity pain secondary to comminuted left scapular fracture. 4. Tachycardia. 5. Leukocytosis. 6. Questionable relative thrombocytopenia. 7. Questionable transaminitis. 8. New-onset seizure disorder, etiology undetermined. 1. New-onset witnessed seizure with generalized seizure with postictal state. 2. Left scapular comminuted fracture with vertical and transverse component. 3. Postictal state. 4. Witnessed generalized seizure with tongue biting. 5. Tachycardia. 6. Sinus tachycardia. 7. Postictal state with lethargy. 8. Leukocytosis probably reactive. 9. Questionable increased anion gap metabolic acidosis. 10. Prerenal kidney injury. 11. Trace proteinuria and pyuria and bacteriuria. 12. Witnessed seizure with foaming of the mouth and tongue biting. 13. Most likely new-onset seizure disorder or seizure. PLAN: At this time, the patient is to be continued on aggressive IV fluid hydration, normal saline about 200-225 mL an hour. Serial CPKs has been ordered. Serial CMP, LFT, magnesium, phosphorous. Serial CBCs ordered. The patient is to be maintained on neuro checks, seizure precaution. Neurology recommends increasing the dose of 750 IV every 12 hours which was done yesterday. Repeat video EEG is pending. We are awaiting orthopedic evaluation and recommendation. The patient is presently on the left upper extremity sling as ordered by the orthopedics. Patient will be continued on both pharmacological and non-pharmacological GI DVT prophylaxis. The patient will be continued on all medications as per the MAR of today. The patient's condition, diagnosis, management, treatment plan, all treatment details discussed with the patient and the patient's spouse yesterday at length. All questions concerned answered. The patient was advised as per the patient's restrictions due to his present medical condition which he acknowledged understand. The patient was advised strictly no driving upon discharge. At present, the patient's lab work from this morning is not available, which will be reviewed when available. Dictated and electronically signed, not read. Naman Lilly MD [facility]
--- NOTE | 2018-07-31 10:46 | CT ---
Date of service: 07/31/2018 PROCEDURE: CT Lumbar Spine without contrast HISTORY: Scapulae Fx; Pain COMPARISON: None available. TECHNIQUE: Axial computed tomography images were obtained of the lumbar spine without the use of intravenous contrast. Coronal and sagittal reformatted images were created and reviewed. Radiation dose: Total exam DLP = 1384.09 mGy-cm. This CT exam was performed using one or more of the following dose reduction techniques: Automated exposure control, adjustment of the mA and/or kV according to patient size, and/or use of iterative reconstruction technique. FINDINGS: VERTEBRAE: Unremarkable. No fracture. Normal alignment. DISCS/SPINAL CANAL/NEURAL FORAMINA: L1-2: Unremarkable. L2-3: Unremarkable. L3-4: Unremarkable. L4-5: Unremarkable. L5-S1: Unremarkable. PARASPINAL SOFT TISSUES: Unremarkable. OTHER FINDINGS: None. IMPRESSION: Unremarkable CT of Lumbar Spine.
[2018-07-31] MEDS ORDERED: Morphine 2 mg/ml ISec IVP STA (11:14)
[2018-07-31] MEDS: Oxycodone/Acetaminophen 5/325 mg Tab PO SCH (19:00)
[2018-08-01] MEDS: Morphine 2 mg/ml ISec IVP PRN ×2 (01:44→06:55)
[2018-08-01] MEDS ORDERED: DiphenhydrAMINE 50 mg/ml Inj IVP STA (02:02)
--- NOTE | 2018-08-01 06:14 | CP.PCM.PN ---
<Terese Richards - Last Filed: 08/01/18 10:55> Subjective - Date & Time of Evaluation Date of Evaluation: 08/01/18 Time of Evaluation: 06:14 - Subjective Subjective: Terese Richards DO, PGY-2: Progress Note for Dr. Lilly Patient was seen and examined at bedside today. Video EEG in progress Overnight nurse's report much appreciated. Patient reports urine has become less brown. He reports good pain control on his current analgesic regimen. He is awake, alert and oriented x 3. was at bedside and appears more relaxed. Objective - Vital Signs/Intake and Output Vital Signs (last 24 hours): Temp Pulse Resp BP Pulse Ox 97.8 F 87 18 114/70 98 08/01/18 00:01 08/01/18 02:00 08/01/18 00:01 08/01/18 00:01 08/01/18 00:01 Intake and Output: 07/31/18 08/01/18 18:59 06:59 Intake Total 560 Output Total 2400 Balance -1840 - Medications Medications: Current Medications Acetaminophen (Tylenol 325mg Tab) 650 mg PO Q6 PRN PRN Reason: TEMP>=99.5F Last Admin: 07/29/18 23:45 Dose: 650 mg Acetaminophen (Tylenol 650 Mg Supp) 650 mg RC Q6H PRN PRN Reason: TEMP>=99.5F Last Admin: 07/29/18 17:48 Dose: 650 mg Heparin Sodium (Porcine) (Heparin) 5,000 units SC Q8 [facility]; Protocol Last Admin: 07/31/18 21:43 Dose: 5,000 units Levetiracetam 750 mg/ Sodium (Chloride) 107.5 mls @ 215 mls/hr IVPB Q12 [facility] Last Admin: 07/31/18 21:42 Dose: 215 mls/hr Sodium Chloride (Sodium Chloride 0.9%) 1,000 mls @ 225 mls/hr IV .Q4H27M [facility] Last Admin: 07/31/18 23:17 Dose: 225 mls/hr Lidocaine (Lidoderm) 1 ea TD DAILY [facility] Last Admin: 07/31/18 09:30 Dose: 1 ea Lorazepam (Ativan) 1 mg IVP Q4H PRN; Protocol PRN Reason: Seizure activity Last Admin: 07/30/18 22:17 Dose: 1 mg Morphine Sulfate (Morphine) 2 mg IVP Q4H PRN PRN Reason: Pain, severe (8-10) Last Admin: 08/01/18 01:44 Dose: 2 mg Nicotine (Nicoderm Cq) 1 patch TD DAILY [facility] Last Admin: 07/31/18 09:30 Dose: 1 patch Ondansetron HCl (Zofran Inj) 4 mg IVP Q4H PRN PRN Reason: Nausea/Vomiting Oxycodone/Acetaminophen (Percocet 5/325 Mg Tab) 1 tab PO BID [facility] Last Admin: 07/31/18 19:00 Dose: 1 tab Pantoprazole Sodium (Protonix Ec Tab) 40 mg PO Q12 [facility] Last Admin: 07/31/18 21:44 Dose: 40 mg - Labs Labs: 07/31/18 06:30 07/31/18 09:15 PT 10.1 SECONDS (9.4-12.5) 07/29/18 04:15 INR 0.91 07/29/18 04:15 APTT 32.1 Seconds (26.9-38.3) 07/29/18 04:15 - Constitutional Appears: Well, Non-toxic - Head Exam Head Exam: ATRAUMATIC, NORMOCEPHALIC - Eye Exam Eye Exam: EOMI, Normal appearance - ENT Exam ENT Exam: Mucous Membranes Moist, Normal Oropharynx - Neck Exam Neck Exam: Normal Inspection - Respiratory Exam Respiratory Exam: NORMAL BREATHING PATTERN. absent: Accessory Muscle Use - Cardiovascular Exam Cardiovascular Exam: RRR, +S1, +S2 - GI/Abdominal Exam GI & Abdominal Exam: Soft, Normal Bowel Sounds - Extremities Exam Extremities Exam: Normal Inspection. absent: Calf Tenderness - Neurological Exam Neurological Exam: Alert, Awake, Oriented x3 Neuro motor strength exam: Left Upper Extremity: 5, Right Upper Extremity: 5, Le ft Lower Extremity: 5, Right Lower Extremity: 5 - Psychiatric Exam Psychiatric exam: Normal Affect, Normal Mood - Skin Skin Exam: Dry, Intact, Normal Color, Warm Assessment and Plan - Assessment and Plan (Free Text) Assessment: 33 year old male with no known past medical history who was brought in via EMS for generalized seizures. 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 Soto consulted - Repeat EEG running in order to find exact dosing of AED 2) Tobacco dependence - Nicotine patch 21 mg TD 3) Comminuted fracture of left scapulae - Orthopedic consulted, Dr. Irizarry - Continue with sling 4) Rhabdomyolysis - CPK elevated at 88,000; trending down to 74,000 - Continue with 250 mls/hr of NS - Creatinine and UO are normal - Continue to monitor Urine Output, LFT's, and kidney function 5) Transaminitis - Secondary to rhabdomyolysis - Abdominal US to be performed (once Video EEG is complete as determined by Neurology) 6) DVT/GI prophylaxis - Heparin 5000 units q8 - Protonix 40 mg q12h Case was reviewed and discussed with attending physician, Dr. Lilly <Naman Lilly - Last Filed: 08/06/18 10:31> Objective - Vital Signs/Intake and Output Vital Signs (last 24 hours): Temp Pulse Resp BP Pulse Ox 97.4 F L 56 L 20 119/73 97 08/05/18 12:00 08/05/18 12:00 08/05/18 12:00 08/05/18 12:00 08/05/18 00:01 - Labs Labs: 08/02/18 06:30 08/05/18 06:15 PT 10.1 SECONDS (9.4-12.5) 07/29/18 04:15 INR 0.91 07/29/18 04:15 APTT 32.1 Seconds (26.9-38.3) 07/29/18 04:15 Attending/Attestation - Attestation I have personally seen and examined this patient.: Yes I have fully participated in the care of the patient.: Yes I have reviewed all pertinent clinical information, including history, physical exam and plan: Yes Notes (Text): Please see/read my dictated notes.
--- NOTE | 2018-08-01 08:08 | CON ---
DATE: 07/31/2018 ORTHOPEDIC CONSULTATION REFERRING PHYSICIAN: Mauricio Coronel MD LOCATION: Room 261, bed 1. HISTORY OF PRESENT ILLNESS: The patient is a 33-year-old male who suffered a fall from a first seizure and landed on his left shoulder. X-ray showed a transverse fracture of the body of the scapula not involving the glenoid. On passive range of motion, there is no evidence of a posterior dislocation. He does have what appears to be subacromial spur, which was there prior to the seizure which occurred on 07/29/2018, when he was admitted. He has good neurovascular status except for the pain in his scapular body. He told me he does not need any surgery, just observation and a sling for comfort and once the fracture starts getting calloused in about 3 to 4 weeks, he can start getting rid of the sling and do gentle range of motion. It is going to take 2 months to completely heal so he could do more motion, but to stay away from athletic activities for 3 months. FINAL DIAGNOSIS: Scapula body fracture, not involving the articular surface compatible with conservative therapy and early range of motion. Alok Irizarry DO
[2018-08-01 08:33] LABS: BASO # 0.01 K/mm3 (0.0-2.0); BASO % 0.2 % (0.0-3.0); EOS # 0.3 (0.0-0.7); EOS % 4.9 % (1.5-5.0); HEMOGLOBIN 13.8 g/dL (14.0-18.0); LYMPH # 1.9 (1.2-3.4); LYMPH % 30.9 % (22.0-35.0); MEAN CELL VOLUME 82.4 fl (80.0-105.0); MEAN CORPUSCULAR HEMOGLOBIN 28.6 pg (25.0-35.0); MEAN CORPUSCULAR HGB CONC 34.8 g/dl (31.0-37.0); MEAN PLATELET VOLUME 9.9 fl (7.0-11.0); MONO # 0.6 (0.1-0.6); MONO % 8.8 % (1.0-6.0); RBC 4.82 10^6/uL (3.5-6.1); RED CELL DISTRIBUTION WIDTH 12.2 % (11.5-14.5); WHITE BLOOD COUNT 6.3 10^3/uL (4.5-11.0)
[2018-08-01 08:51] LABS: ALB/GLOB RATIO 1.1 (1.1-1.8); ALBUMIN 3.1 g/dL (3.0-4.8); ALT/SGPT 82 U/L (7-56); AST/SGOT 417 U/L (17-59); BILIRUBIN,DIRECT 0.2 mg/dL (0.0-0.4); BLOOD UREA NITROGEN 6 mg/dL (7-21); CALCIUM 7.8 mg/dL (8.4-10.5); GFR NON-AFRICAN AMERICAN > 60
[2018-08-01] MEDS: Pantoprazole 40 mg EC Tab PO SCH ×2 (10:26→22:38)
[2018-08-01] MEDS: Lidocaine 5% Patch TD SCH (10:26)
[2018-08-01] MEDS: Oxycodone/Acetaminophen 5/325 mg Tab PO SCH ×2 (10:26→17:28)
[2018-08-01 10:30] LABS: CK-MB 0.4 ng/mL (0.0-3.6)
--- NOTE | 2018-08-01 11:58 | CP.PCM.PN ---
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 VEEG shows occasional frontal dominant spike and wave discharges, classic for primary generalized epilepsy. He is tolerating IV keppra well, and is now going to have VEEg discontinued. Appears to still be postictal. ROS: malaise, headache, fatigue. On exam: AAOx3. CN 2-12 normal. EOMI. motor: left deltoid: 4/5, left geriatric nursing assistant : 5-/5, left triceps,biceps: 4/5 sensory: intact ft, pin in all dermatomes. +2 dtr ul and ll bl. Toes downgoing. No clonus Gait not tested. Objective - Vital Signs/Intake and Output Vital Signs (last 24 hours): Temp Pulse Resp BP Pulse Ox 98.4 F 86 16 124/72 98 08/01/18 06:00 08/01/18 06:00 08/01/18 06:00 08/01/18 06:00 08/01/18 06:00 Intake and Output: 08/01/18 08/01/18 06:59 18:59 Intake Total 4248 Output Total 4000 Balance 248 - Medications Medications: Current Medications Acetaminophen (Tylenol 325mg Tab) 650 mg PO Q6 PRN PRN Reason: TEMP>=99.5F Last Admin: 07/29/18 23:45 Dose: 650 mg Acetaminophen (Tylenol 650 Mg Supp) 650 mg RC Q6H PRN PRN Reason: TEMP>=99.5F Last Admin: 07/29/18 17:48 Dose: 650 mg Heparin Sodium (Porcine) (Heparin) 5,000 units SC Q8 [facility]; Protocol Last Admin: 08/01/18 06:24 Dose: 5,000 units Sodium Chloride (Sodium Chloride 0.9%) 1,000 mls @ 250 mls/hr IV .Q4H [facility] Levetiracetam (Keppra) 750 mg PO BID [facility] Lidocaine (Lidoderm) 1 ea TD DAILY [facility] Last Admin: 08/01/18 10:26 Dose: 1 ea Lorazepam (Ativan) 1 mg IVP Q4H PRN; Protocol PRN Reason: Seizure activity Last Admin: 07/30/18 22:17 Dose: 1 mg Morphine Sulfate (Morphine) 2 mg IVP Q4H PRN PRN Reason: Pain, severe (8-10) Last Admin: 08/01/18 06:55 Dose: 2 mg Nicotine (Nicoderm Cq) 1 patch TD DAILY [facility] Last Admin: 08/01/18 10:25 Dose: 1 patch Ondansetron HCl (Zofran Inj) 4 mg IVP Q4H PRN PRN Reason: Nausea/Vomiting Oxycodone/Acetaminophen (Percocet 5/325 Mg Tab) 1 tab PO BID [facility] Last Admin: 08/01/18 10:26 Dose: 1 tab Pantoprazole Sodium (Protonix Ec Tab) 40 mg PO Q12 [facility] Last Admin: 08/01/18 10:26 Dose: 40 mg - Labs Labs: 08/01/18 08:20 08/01/18 08:20 PT 10.1 SECONDS (9.4-12.5) 07/29/18 04:15 INR 0.91 07/29/18 04:15 APTT 32.1 Seconds (26.9-38.3) 07/29/18 04:15 Assessment and Plan - Assessment and Plan (Free Text) Assessment: 33 yr old male with Primary Generalized epilepsy, most likely RAMONITA, who is now having multiple interictal discharges and will need to be on lifelong Keppra therapy, or another AED. MRI Brain has been normal, as is MRA Plan; 1. COntinue keppra 750 mg bid. I will reconnect him on veeg tomorrow after starting higher dose to assess interictal discharges. 2. Orthopedic surgery consult for fractured scapula. Dr. alicia Neurology
[2018-08-01] MEDS: Sodium Chloride 0.9% 1,000 ML IV SCH ×3 (12:14→21:30)
--- NOTE | 2018-08-01 12:44 | PCM.VEEG ---
Video EEG - Procedure Start Date: 07/31/18 Start Time: 15:05 End Date: 08/01/18 End Time: 09:00 Technical Summary: DATA ACQUISITION: This was a multichannel inpatient video-EEG, a minimum of 22 channels were uti lized, performed in accordance with recommendations specified by the [place] [employer] (Yina Medrano et al. ACNS Guideline 1: Minimum Technical Requirements for Performing Clinical Electroencephalography. Journal of Clinical Neurophysiology 2016;33:303-7). The 10-20 electrode placement system was utilized in accordance with guidelines detailed by the International Federation of Clinical Neurophysiology (Amber Conley et al. The Ten-Twenty Electrode System of the International Federation. Recommendations for the Practice of Clinical Neurophysiology: Guidelines of the International Federation of Clinical Physiology 1999; EEG Suppl. 52.). DATA REVIEW / SPIKE DETECTION / DIGITAL ANALYSIS: The entire EEG was scanned and reviewed. Synchronized audio and video recording were reviewed at the time of each alarm and whenever an abnormality or suspicious activity was noted. The entire recording was analyzed utilizing an automated digital spike and seizure analysis program and all automatic spike and seizure detections were manually reviewed. A compressed spectral array was displayed and reviewed alongside the raw EEG tracings. In addition, further analysis of the EEG was performed when abnormalities were identified, including montage changes, dipole source localization, and frequency band identification. This study was attended 24 hours per day. - Interpretation Description of the study: Indication; epilepsy EEG Finding during wakefulness: During active states, the EEG was characterized by 14-25 Hz, 15-30 uV activity bilaterally in fronto-central regions. Resting wakefulness was characterized by a symmetric posterior dominant rhythm of 9-10 Hz, 30-50 uV, which was reactive to eye opening and closing. Drowsiness was associated with slow roving eye movements, slowing and fragmentation of the posterior dominant rhythm, and bilateral 4-7 Hz, 40-70 uV theta activity, sometimes with a shifting predominance. There were no significant asymmetries noted during wakefulness. Hyperventilation was not performed Photic stimulation was not performed. EEG Finding during sleep: Light sleep was recorded and was characterized by fronto-central slowing at 5-7 H, 50-125 uV, sharp central vertex waves, bilateral sleep spindles, and K- complexes; shifting asymmetries were evident. Deeper stages of sleep were recorded and were characterized an increasing frequency of 1-4 Hz, 50-100 uV delta activity. REM sleep was also recorded and was characterized by mixed frequency (3-15 Hz) low voltage (< 20 uV) activity with clusters of rapid horizontal and vertical eye movements. There were no significant asymmetries noted during sleep. Interictal non-epileptiform abnormalities: None Interictal epileptiform abnormalities: Through the test there were occasional bursts of generalized sharply countered complexes at 5 Hz, lasting up to 1 seconds. Ictal epileptiform abnormalities: Multiple PB activations, that were not seizures. Not clear why the button was pushed, whether it was accidental or whether he had an event, clinical correlation is necessary. - Impression Impression: This is an abnormal video-EEG monitoring study due to the presence of; 1-Normal awake/sleep architecture. 2-No seizures were recorded. 3-Generalized paroxysmal discharges at 4.5 to 5.5 Hz., less than 1 second, most likely fragments of generalized SW. 4- Multiple PB activations that were not seizures INTERPRETATION: These findings, in the presence of clinical seizures support the diagnosis of idiopathic generalized epilepsy.
--- NOTE | 2018-08-01 22:48 | PN ---
DATE: 08/01/2018 SUBJECTIVE: The patient is seen today in room 261, bed 1. The patient is out of bed to chair. The patient's family is at bedside. The patient is awake, responsive, appears to be in lessened pain. No seizure activity was documented overnight. The patient is alert, awake, and responsive. The patient is having left upper extremity sling. Overnight nurse's notes were reviewed. The patient was evaluated by Orthopedics. The patient slept well with episodic pain complaint. PHYSICAL EXAMINATION: VITAL SIGNS: T-max 98.4. Heart rate 71 to 83. Telemetry, normal sinus rhythm. Blood pressure 123/78. Respirations 18. O2 sat is 98%. HEENT: Head: Normocephalic and atraumatic. HEENT examination shows pinkish conjunctivae. Anicteric sclerae. Dry oral mucosa. No neck rigidity. CHEST: Kyphosis. LUNGS: Shows no audible crackle, rales or wheezing. CARDIOVASCULAR: S1 and S2, regular rhythm. ABDOMEN: Soft. Positive bowel sounds. No palpable hepatosplenomegaly. GENITALIA: Male. RECTAL: Deferred. EXTREMITIES: Upper extremities, sling with decreased range of motion. Extremities show no pitting edema, no calf tenderness, and no Homans' sign. NEUROLOGIC: The patient is alert, awake, and oriented x3. Cranial nerves II through XII limited. Gait examination is not tested. The patient is sitting up in the chair. Alert, awake, and responsive. DIAGNOSTIC DATA: On 08/01/2018, WBC 6.3, hemoglobin and hematocrit 13.8 and 39.7, and platelets 149. Sodium 140, potassium 4.1, chloride 109, CO2 of 27, anion gap 8, BUN 6, creatinine 0.8, GFR greater than 60, glucose 93, calcium 7.8, phosphorus 4.5, and magnesium 1.8. AST 470 and ALT 82. CPK is 74,334. Troponin is negative. LFTs are normal. Microbiology cultures are negative. The patient had a CT of the cervical spine, which was ordered by the neurologist, which was negative. The patient had a repeat video EEG done and completed yesterday, shows presence of clinical seizure with diagnosis of idiopathic generalized epilepsy with generalized paroxysmal discharge at 4.5 to 5.5 Hz. The patient was seen by Orthopedics. Recommendation was conservative therapy for scapular body fracture, not involving the articular surface. ASSESSMENT: 1. Witnessed seizure disorder, new onset with abnormal video electroencephalogram with presence of idiopathic generalized epilepsy and clinical seizure. 2. Rhabdomyolysis with elevated creatine phosphokinase. 3. Leukocytosis. 4. Mild dilutional anemia. 5. Transaminitis, probably secondary to rhabdomyolysis. 6. History of cholelithiasis. 7. Trace proteinuria, pyuria, and bacteriuria. 8. T9 mild compression deformity. 9. Impacted comminuted left mid scapular fracture. 10. Deconditioning. 11. Gait dysfunction. 12. Sinus tachycardia. 13. Questionable allergic reaction with hives, etiology undetermined. 14. Nicotine dependence. 1. Idiopathic generalized seizure and witnessed seizure with mouth foaming and tongue biting. 2. Rhabdomyolysis. 3. T9 compression deformity, age undetermined. 4. Left mid scapula impacted comminuted fracture. 5. Hypotension. 6. Mild normocytic anemia. 7. Deconditioning. 8. Musculoskeletal pain, probably secondary to rhabdomyolysis. 1. New-onset witnessed seizure with episode of mouth foaming and tongue biting. 2. Comminuted left scapular fracture. 3. Left upper extremity pain secondary to comminuted left scapular fracture. 4. Tachycardia. 5. Leukocytosis. 6. Questionable relative thrombocytopenia. 7. Questionable transaminitis. 8. New-onset seizure disorder, etiology undetermined. 1. New-onset witnessed seizure with generalized seizure with postictal state. 2. Left scapular comminuted fracture with vertical and transverse component. 3. Postictal state. 4. Witnessed generalized seizure with tongue biting. 5. Tachycardia. 6. Sinus tachycardia. 7. Postictal state with lethargy. 8. Leukocytosis probably reactive. 9. Questionable increased anion gap metabolic acidosis. 10. Prerenal kidney injury. 11. Trace proteinuria and pyuria and bacteriuria. 12. Witnessed seizure with foaming of the mouth and tongue biting. 13. Most likely new-onset seizure disorder or seizure. PLAN: At this time, the patient has been ordered repeat labs for the morning. Consultation of Orthopedic and Neurology. CURRENT MEDICATIONS: The patient is started on hydroxyzine 25 mg every 6 hours p.r.n. The patient is on Ativan 1 mg IV every 4 hours p.r.n. The patient is on heparin 5000 units subcu every 8 hours for DVT prophylaxis, Keppra 750 mg twice a day, Lidoderm 5% patch to the affected area, morphine 2 mg IV every 4 hours p.r.n. nicotine patch 21 mg daily, Pepcid 20 mg twice a day, Percocet 5/325 one tablet b.i.d. as per Neurology, Protonix 40 mg IV every 12 hours, and IV fluid 0.9 normal saline at 250 mL/hour. The patient was given a dose of Solu-Medrol 125 x1. Tylenol 650 mg will be discontinued because of transaminitis. The patient has been ordered incentive spirometry. The patient is on regular diet. The patient has been ordered ODILIA stockings, SCDs, seizure precautions, and neuro checks. Occupational therapy and physical therapy ordered. The patient was seen by physical therapist. Recommendation was home with services outpatient occupational therapy. 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 The patient and the patient's updated about the patient's condition, diagnoses,and recommendation at length. All questions concerned answered. Dictated and electronically signed, not read. Naman Lilly MD [email or web address]
--- NOTE | 2018-08-02 00:09 | CP.PCM.PN ---
Subjective - Date & Time of Evaluation Date of Evaluation: 08/02/18 Time of Evaluation: 00:09 - Subjective Subjective: # 22 angiocath was inserted in left hand dorsum. Has no acute symptoms now. VSS. Not in distrss. Objective - Vital Signs/Intake and Output Vital Signs (last 24 hours): Temp Pulse Resp BP Pulse Ox 98.3 F 77 19 130/82 98 08/01/18 17:24 08/01/18 18:00 08/01/18 17:24 08/01/18 17:24 08/01/18 06:00 Intake and Output: 08/01/18 08/02/18 18:59 06:59 Intake Total 2900 598 Output Total 1600 Balance 2900 -1002 - Medications Medications: Current Medications Famotidine (Pepcid) 20 mg PO 1000,2200 [facility] Stop: 08/04/18 10:01 Last Admin: 08/01/18 22:28 Dose: 20 mg Heparin Sodium (Porcine) (Heparin) 5,000 units SC Q8 [facility]; Protocol Last Admin: 08/01/18 22:27 Dose: 5,000 units Hydroxyzine HCl (Atarax) 25 mg PO Q6H PRN PRN Reason: Itching / Pruritus Last Admin: 08/01/18 14:16 Dose: 25 mg Sodium Chloride (Sodium Chloride 0.9%) 1,000 mls @ 250 mls/hr IV .Q4H [facility] Last Admin: 08/01/18 21:30 Dose: 250 mls/hr Levetiracetam (Keppra) 750 mg PO BID [facility] Last Admin: 08/01/18 17:28 Dose: 750 mg Lidocaine (Lidoderm) 1 ea TD DAILY [facility] Last Admin: 08/01/18 10:26 Dose: 1 ea Lorazepam (Ativan) 1 mg IVP Q4H PRN; Protocol PRN Reason: Seizure activity Last Admin: 07/30/18 22:17 Dose: 1 mg Morphine Sulfate (Morphine) 2 mg IVP Q4H PRN PRN Reason: Pain, severe (8-10) Last Admin: 08/01/18 06:55 Dose: 2 mg Nicotine (Nicoderm Cq) 1 patch TD DAILY [facility] Last Admin: 08/01/18 10:25 Dose: 1 patch Ondansetron HCl (Zofran Inj) 4 mg IVP Q4H PRN PRN Reason: Nausea/Vomiting Oxycodone/Acetaminophen (Percocet 5/325 Mg Tab) 1 tab PO BID [facility] Last Admin: 08/01/18 17:28 Dose: 1 tab Pantoprazole Sodium (Protonix Ec Tab) 40 mg PO Q12 [facility] Last Admin: 08/01/18 22:38 Dose: 40 mg - Labs Labs: 08/01/18 08:20 08/01/18 08:20 PT 10.1 SECONDS (9.4-12.5) 07/29/18 04:15 INR 0.91 07/29/18 04:15 APTT 32.1 Seconds (26.9-38.3) 07/29/18 04:15
[2018-08-02] MEDS: Sodium Chloride 0.9% 1,000 ML IV SCH ×8 (00:24→23:09)
[2018-08-02] MEDS ORDERED: Oxycodone/Acetaminophen 5/325 mg Tab PO STA (00:33)
[2018-08-02] MEDS ORDERED: DiphenhydrAMINE 50 mg/ml Inj IVP STA (02:40)
--- NOTE | 2018-08-02 04:52 | CP.PCM.PN ---
Subjective - Date & Time of Evaluation Date of Evaluation: 08/02/18 Time of Evaluation: 04:51 - Subjective Subjective: It was requested to cosign order for Percocet. Objective - Vital Signs/Intake and Output Vital Signs (last 24 hours): Temp Pulse Resp BP Pulse Ox 97.8 F 74 20 113/65 99 08/02/18 00:01 08/02/18 02:00 08/02/18 00:01 08/02/18 00:01 08/02/18 00:01 Intake and Output: 08/01/18 08/02/18 18:59 06:59 Intake Total 2900 598 Output Total 1600 Balance 2900 -1002 - Medications Medications: Current Medications Famotidine (Pepcid) 20 mg PO 1000,2200 [facility] Stop: 08/04/18 10:01 Last Admin: 08/01/18 22:28 Dose: 20 mg Heparin Sodium (Porcine) (Heparin) 5,000 units SC Q8 [facility]; Protocol Last Admin: 08/01/18 22:27 Dose: 5,000 units Hydroxyzine HCl (Atarax) 25 mg PO Q6H PRN PRN Reason: Itching / Pruritus Last Admin: 08/01/18 14:16 Dose: 25 mg Sodium Chloride (Sodium Chloride 0.9%) 1,000 mls @ 250 mls/hr IV .Q4H [facility] Last Admin: 08/02/18 00:24 Dose: 250 mls/hr Levetiracetam (Keppra) 750 mg PO BID [facility] Last Admin: 08/01/18 17:28 Dose: 750 mg Lidocaine (Lidoderm) 1 ea TD DAILY [facility] Last Admin: 08/01/18 10:26 Dose: 1 ea Lorazepam (Ativan) 1 mg IVP Q4H PRN; Protocol PRN Reason: Seizure activity Last Admin: 07/30/18 22:17 Dose: 1 mg Morphine Sulfate (Morphine) 2 mg IVP Q4H PRN PRN Reason: Pain, severe (8-10) Last Admin: 08/01/18 06:55 Dose: 2 mg Nicotine (Nicoderm Cq) 1 patch TD DAILY [facility] Last Admin: 08/01/18 10:25 Dose: 1 patch Ondansetron HCl (Zofran Inj) 4 mg IVP Q4H PRN PRN Reason: Nausea/Vomiting Oxycodone/Acetaminophen (Percocet 5/325 Mg Tab) 1 tab PO BID [facility] Last Admin: 08/01/18 17:28 Dose: 1 tab Pantoprazole Sodium (Protonix Ec Tab) 40 mg PO Q12 [facility] Last Admin: 08/01/18 22:38 Dose: 40 mg - Labs Labs: 08/01/18 08:20 08/01/18 08:20 PT 10.1 SECONDS (9.4-12.5) 07/29/18 04:15 INR 0.91 07/29/18 04:15 APTT 32.1 Seconds (26.9-38.3) 07/29/18 04:15 - Constitutional Appears: Well, No Acute Distress - Head Exam Head Exam: ATRAUMATIC, NORMAL INSPECTION, NORMOCEPHALIC - Eye Exam Eye Exam: Normal appearance - ENT Exam ENT Exam: Normal External Ear Exam - Neck Exam Neck Exam: Normal Inspection - Respiratory Exam Respiratory Exam: NORMAL BREATHING PATTERN - Cardiovascular Exam Cardiovascular Exam: absent: JVD - GI/Abdominal Exam GI & Abdominal Exam: absent: Distended - Rectal Exam Rectal Exam: Deferred - Exam Additional comments: Deferred. - Extremities Exam Extremities Exam: Normal Inspection - Back Exam Back Exam: NORMAL INSPECTION - Neurological Exam Neurological Exam: Alert, Awake - Psychiatric Exam Psychiatric exam: Normal Affect, Normal Mood - Skin Skin Exam: Normal Color Assessment and Plan - Assessment and Plan (Free Text) Assessment: Body aches. New onset seizure. Overweight. Elevated LFTs. Plan: Percocet 1 p.o. stat. Continue present management.
[2018-08-02 07:25] LABS: ALB/GLOB RATIO 1.1 (1.1-1.8); ALT/SGPT 89 U/L (7-56); AST/SGOT 294 U/L (17-59); BILIRUBIN,DIRECT 0.2 mg/dL (0.0-0.4); BLOOD UREA NITROGEN 11 mg/dL (7-21); CALCIUM 7.9 mg/dL (8.4-10.5); GFR NON-AFRICAN AMERICAN > 60
[2018-08-02 07:51] LABS: BASO # 0.01 K/mm3 (0.0-2.0); BASO % 0.1 % (0.0-3.0); EOS # 0.2 (0.0-0.7); EOS % 3.2 % (1.5-5.0); HEMOGLOBIN 13.6 g/dL (14.0-18.0); LYMPH # 2.3 (1.2-3.4); LYMPH % 30.6 % (22.0-35.0); MEAN CELL VOLUME 82.1 fl (80.0-105.0); MEAN CORPUSCULAR HEMOGLOBIN 28.3 pg (25.0-35.0); MEAN CORPUSCULAR HGB CONC 34.5 g/dl (31.0-37.0); MEAN PLATELET VOLUME 10.1 fl (7.0-11.0); MONO # 0.6 (0.1-0.6); MONO % 7.9 % (1.0-6.0); RBC 4.8 10^6/uL (3.5-6.1); RED CELL DISTRIBUTION WIDTH 12.1 % (11.5-14.5); WHITE BLOOD COUNT 7.5 10^3/uL (4.5-11.0)
[2018-08-02] MEDS: Oxycodone/Acetaminophen 5/325 mg Tab PO SCH ×2 (09:27→17:21)
[2018-08-02] MEDS: Pantoprazole 40 mg EC Tab PO SCH ×2 (09:29→21:17)
[2018-08-02] MEDS: Lidocaine 5% Patch TD SCH (09:29)
--- NOTE | 2018-08-02 10:43 | US ---
Date of service: 08/02/2018 HISTORY: TRANSAMINITIS COMPARISON: None. TECHNIQUE: Sonographic evaluation of the abdomen. FINDINGS: LIVER: Measures 14.3 cm. There is diffuse increased echogenicity of the liver parenchyma. No mass. No intrahepatic bile duct dilatation. GALLBLADDER: There are gallstones. No wall thickening or pericholecystic fluid. The sonographic Esposito's sign is negative. COMMON BILE DUCT: Measures 3.7 mm. No stones. No dilatation. PANCREAS: Unremarkable as visualized. No mass. No ductal dilatation. RIGHT KIDNEY: Measures 11.1cm. Normal echogenicity. No calculus, mass, or hydronephrosis. Extrarenal pelvis and mild dilatation of the proximal ureter LEFT KIDNEY: Measures 9.6cm. Normal echogenicity. No calculus, mass, or hydronephrosis. Extrarenal pelvis and mild dilatation of the proximal ureter. SPLEEN: Normal in size and contour. No mass. AORTA: No aneurysmal dilatation. IVC: Unremarkable. OTHER FINDINGS: None. IMPRESSION: Diffuse increased echogenicity in the liver may reflect hepatic steatosis however parenchymal infectious/ inflammatory etiologies cannot be entirely excluded. Clinical and laboratory correlation is advised. Cholelithiasis. Bilateral extrarenal pelvis and mild dilatation of the proximal ureters. If clinically indicated correlation with CT scan of the abdomen and pelvis may be performed for complete evaluation of the renal collecting systems.
--- NOTE | 2018-08-02 11:50 | PN ---
DATE: 08/02/2018 SUBJECTIVE: The patient is seen lying in the bed in the ultrasound area waiting area. The patient is awake, responsive. The patient complains of left shoulder pain. Denies any cramps. Overnight nurse's notes were reviewed. The patient stayed without any seizure activity overnight. The patient continued on IV fluid. The patient's rash from yesterday has resolved. According to the nurse's note, the patient yesterday was out of bed in the room walking. PHYSICAL EXAMINATION: VITAL SIGNS: T-max 97.8. Telemetry, sinus rhythm, heart rate 61, 74, 81, blood pressure 112/73, 113/65, respiration 20, O2 sat 95%. HEENT: Head is normocephalic, atraumatic. HEENT examination shows pinkish pale conjunctivae. Anicteric sclerae. No oropharyngeal lesion. NECK: No neck rigidity. CHEST: Kyphosis. CARDIOVASCULAR: Shows S1, S2, regular rhythm. LUNGS: Shows no audible crackle, rales or wheezing. CARDIOPULMONARY: Text. LUNGS: Text. ABDOMEN: Soft, positive bowel sound. No palpable hepatosplenomegaly. EXTREMITIES: Upper extremity, positive sling, positive decreased range of motion. Positive pain of the left shoulder. Lower extremity shows no pitting edema, no calf tenderness, and no Homans' sign. GENITALIA: Male. RECTAL: Deferred. MUSCULOSKELETAL: Shows a body mass index of 28. NEUROLOGIC: Cranial nerves II-XII limited. Gait examination is not tested. VASCULAR: Palpable pulses. PSYCHIATRIC: Not applicable. DIAGNOSTICS DATA: On 08/02/2018, WBC 7.5, hemoglobin and hematocrit 13.6, 39.4, platelets 173. Sodium 141, potassium 3.7, chloride 110, CO2 of 27, anion gap 8, BUN 11, creatinine 0.7, GFR is greater than 60, glucose 108, calcium 7.9, phosphorus 4.2, magnesium 1.8. AST is down to 294 from 473, ALT is 89, alk phos 55. CPK is pending. Yesterday, CPK was 74,334. RPR, Lyme titers, hepatitis A1, and HIV is negative. Blood cultures and urine cultures negative. Abdominal ultrasound results are pending. DIAGNOSES: 1. 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 2. Left shoulder fracture. 3. 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 4. 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 5. Transient leukocytosis. 6. Rhabdomyolysis with a CPK of greater than 88,000. 7. Transaminitis. 8. Trace proteinuria, pyuria, bacteriuria. 9. T9 inferior endplate mild compression deformity. 10. Gait dysfunction. 11. Left mid scapular impacted comminuted fracture sparing the upper portion. 12. Sinus tachycardia. 13. Left scapular body fracture. 14. History of cholelithiasis. 15. Idiopathic generalized epilepsy with abnormal video EEG. 16. History of nicotine dependence. 17. Questionable allergic reaction, etiology undetermined. 1. Witnessed seizure disorder, new onset with abnormal video electroencephalogram with presence of idiopathic generalized epilepsy and clinical seizure. 2. Rhabdomyolysis with elevated creatine phosphokinase. 3. Leukocytosis. 4. Mild dilutional anemia. 5. Transaminitis, probably secondary to rhabdomyolysis. 6. History of cholelithiasis. 7. Trace proteinuria, pyuria, and bacteriuria. 8. T9 mild compression deformity. 9. Impacted comminuted left mid scapular fracture. 10. Deconditioning. 11. Gait dysfunction. 12. Sinus tachycardia. 13. Questionable allergic reaction with hives, etiology undetermined. 14. Nicotine dependence. 1. Idiopathic generalized seizure and witnessed seizure with mouth foaming and tongue biting. 2. Rhabdomyolysis. 3. T9 compression deformity, age undetermined. 4. Left mid scapula impacted comminuted fracture. 5. Hypotension. 6. Mild normocytic anemia. 7. Deconditioning. 8. Musculoskeletal pain, probably secondary to rhabdomyolysis. 1. New-onset witnessed seizure with episode of mouth foaming and tongue biting. 2. Comminuted left scapular fracture. 3. Left upper extremity pain secondary to comminuted left scapular fracture. 4. Tachycardia. 5. Leukocytosis. 6. Questionable relative thrombocytopenia. 7. Questionable transaminitis. 8. New-onset seizure disorder, etiology undetermined. 1. New-onset witnessed seizure with generalized seizure with postictal state. 2. Left scapular comminuted fracture with vertical and transverse component. 3. Postictal state. 4. Witnessed generalized seizure with tongue biting. 5. Tachycardia. 6. Sinus tachycardia. 7. Postictal state with lethargy. 8. Leukocytosis probably reactive. 9. Questionable increased anion gap metabolic acidosis. 10. Prerenal kidney injury. 11. Trace proteinuria and pyuria and bacteriuria. 12. Witnessed seizure with foaming of the mouth and tongue biting. 13. Most likely new-onset seizure disorder or seizure. PLAN: At this time, the patient has been ordered repeat labs. Consultation, Orthopedics and Neurology. CURRENT MEDICATIONS: Atarax or hydroxyzine 25 mg p.o. every 6 hours p.r.n. Ativan 1 mg p.o. IV every 4 hours p.r.n., heparin 5000 subcutaneously every 8 hours, Keppra 750 mg twice a day, Lidoderm 5% patch to the affected area, morphine 2 mg IV every 4 hours p.r.n., nicotine patch 21 mg daily, Pepcid 20 mg twice a day, Percocet 5/325 1 tablet b.i.d., Protonix 40 mg every 12 hours, IV fluid 0.9 normal saline at 250 mL an hour, Zofran 4 mg IV every 4 hours p.r.n. The patient's abdominal ultrasound results are pending. The patient has been ordered SCDs, ODILIA stockings, head of the bed at 30 degrees, neuro checks every 2 hours , seizure precaution, aspiration precautions. Physical therapy, occupational therapy, out of bed all has been ordered.. At present, the patient's further management will be dependent upon the patient's clinical condition, hemodynamic status and as per the patient response to therapeutic intervention, as per the patient's diagnostic test results and as per recommendation by all the physicians involved in the care of the patient. At present, we are awaiting for today's CPK. We will monitor the CPK trend. The patient will be considered for discharge when CPK is closer to the normal range. The patient updated about his condition, diagnosis, test results, recommendation at length and all questions concerned answered. Dictated and electronically signed, not read. Naman Lilly MD [facility]
[2018-08-02 12:03] LABS: CK-MB 0.3 ng/mL (0.0-3.6)
[2018-08-03] MEDS: Sodium Chloride 0.9% 1,000 ML IV SCH ×10 (00:05→23:24)
[2018-08-03 08:08] LABS: ALB/GLOB RATIO 1.1 (1.1-1.8); AST/SGOT 246 U/L (17-59); BILIRUBIN,DIRECT 0.1 mg/dL (0.0-0.4); BLOOD UREA NITROGEN 13 mg/dL (7-21); GFR NON-AFRICAN AMERICAN > 60; HDL CHOLESTEROL 46 mg/dL (29-60)
[2018-08-03 08:19] LABS: LDL CHOLESTEROL 91 mg/dL (0-129)
[2018-08-03 08:25] LABS: ALT/SGPT 130 U/L (7-56)
[2018-08-03] MEDS: Pantoprazole 40 mg EC Tab PO SCH ×2 (09:37→21:35)
[2018-08-03] MEDS: Lidocaine 5% Patch TD SCH (09:38)
[2018-08-03] MEDS: Oxycodone/Acetaminophen 5/325 mg Tab PO SCH ×2 (09:39→17:25)
[2018-08-03 10:27] LABS: CK-MB 0.3 ng/mL (0.0-3.6)
[2018-08-03] MEDS ORDERED: Magnesium Sulfate 2 gm/50 ml 2 GM/50 ML BAG IVPB ONE (11:37)
[2018-08-03] MEDS ORDERED: Potassium Chloride 20 mEq ER Tab PO ONE (11:37)
--- NOTE | 2018-08-03 20:17 | PN ---
DATE: 08/03/2018 The patient is seen in room 261, bed 1. SUBJECTIVE: The patient is seen lying in the bed with the patient's at bedside. The patient states that he is feeling significantly better since the day of admission. The patient is alert, awake, responsive, answers questions appropriately and correctly. Overnight nurse's notes are reviewed. The patient slept well with episodes of left shoulder pain requiring analgesic. PHYSICAL EXAMINATION: VITAL SIGNS: T-max 98.1, telemetry normal sinus rhythm. Heart rate 62, blood pressure 114/69, respirations 18, O2 sat 96%. HEENT: Head examination: Normocephalic, atraumatic. HEENT examination shows pinkish conjunctivae, dry oral mucosa. No neck rigidity. CHEST: Symmetrical. LUNGS: Show no audible crackle, rales or wheezing. CARDIOVASCULAR: S1 and S2. Regular rhythm. ABDOMEN: Soft. Positive bowel sounds. No palpable hepatosplenomegaly. GENITALIA: Male. RECTAL: Deferred. EXTREMITIES: Left upper extremity is in a sling with decreased range of motion. Lower extremities shows no pitting edema, no calf tenderness, no Homans' sign. NEUROLOGIC: The patient is alert, awake, oriented x3, is able to move right upper extremity, bilateral lower extremity without assistance. Gait examination is not tested. Cranial nerves II through XII limited. DIAGNOSTIC DATA: WBC is 7.5, hemoglobin and hematocrit 13.6 and 39.4, platelets 173. Sodium 141, potassium 3.7, chloride 108, CO2 of 26, BUN 13, creatinine 0.7, glucose 92, calcium 8, phosphorus 4.6, magnesium 1.7. AST is 246, ALT 130 which has gone up. CPK is down to 21,421. Ultrasound of the abdomen shows gallstones without gallbladder wall thickening or pericholecystic fluid. Bilateral extrarenal pelvis with dilatation of the proximal ureter, fatty liver, diffuse increased echogenicity of the liver noted. IMPRESSION: 1. New-onset idiopathic generalized epilepsy and juvenile myoclonic epilepsy with witnessed seizure with tongue biting and postictal state. 2. Rhabdomyolysis, secondary to seizure. 3. Borderline hypokalemia. 4. Borderline hypomagnesemia. 5. Transaminitis. 6. Severe rhabdomyolysis with elevated CPK greater than 88,000, down to 21,000. 7. Cholelithiasis. 8. Bilateral extrarenal pelvis and dilatation of the proximal ureter. 9. Hepatic steatosis and fatty liver. 10. Diffuse increased echogenicity of the liver. 11. History of kidney stones from acute fatty liver. 12. History of cholelithiasis. 1. 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 2. Left shoulder fracture. 3. 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 4. 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 5. Transient leukocytosis. 6. Rhabdomyolysis with a CPK of greater than 88,000. 7. Transaminitis. 8. Trace proteinuria, pyuria, bacteriuria. 9. T9 inferior endplate mild compression deformity. 10. Gait dysfunction. 11. Left mid scapular impacted comminuted fracture sparing the upper portion. 12. Sinus tachycardia. 13. Left scapular body fracture. 14. History of cholelithiasis. 15. Idiopathic generalized epilepsy with abnormal video EEG. 16. History of nicotine dependence. 17. Questionable allergic reaction, etiology undetermined. 1. Witnessed seizure disorder, new onset with abnormal video electroencephalogram with presence of idiopathic generalized epilepsy and clinical seizure. 2. Rhabdomyolysis with elevated creatine phosphokinase. 3. Leukocytosis. 4. Mild dilutional anemia. 5. Transaminitis, probably secondary to rhabdomyolysis. 6. History of cholelithiasis. 7. Trace proteinuria, pyuria, and bacteriuria. 8. T9 mild compression deformity. 9. Impacted comminuted left mid scapular fracture. 10. Deconditioning. 11. Gait dysfunction. 12. Sinus tachycardia. 13. Questionable allergic reaction with hives, etiology undetermined. 14. Nicotine dependence. 1. Idiopathic generalized seizure and witnessed seizure with mouth foaming and tongue biting. 2. Rhabdomyolysis. 3. T9 compression deformity, age undetermined. 4. Left mid scapula impacted comminuted fracture. 5. Hypotension. 6. Mild normocytic anemia. 7. Deconditioning. 8. Musculoskeletal pain, probably secondary to rhabdomyolysis. 1. New-onset witnessed seizure with episode of mouth foaming and tongue biting. 2. Comminuted left scapular fracture. 3. Left upper extremity pain secondary to comminuted left scapular fracture. 4. Tachycardia. 5. Leukocytosis. 6. Questionable relative thrombocytopenia. 7. Questionable transaminitis. 8. New-onset seizure disorder, etiology undetermined. 1. New-onset witnessed seizure with generalized seizure with postictal state. 2. Left scapular comminuted fracture with vertical and transverse component. 3. Postictal state. 4. Witnessed generalized seizure with tongue biting. 5. Tachycardia. 6. Sinus tachycardia. 7. Postictal state with lethargy. 8. Leukocytosis probably reactive. 9. Questionable increased anion gap metabolic acidosis. 10. Prerenal kidney injury. 11. Trace proteinuria and pyuria and bacteriuria. 12. Witnessed seizure with foaming of the mouth and tongue biting. 13. Most likely new-onset seizure disorder or seizure. PLAN: 1. At this time, the patient is to be continued on aggressive IV fluid hydration. The patient is to be continued on pharmacological, nonpharmacological GI, DVT prophylaxis. The patient is to be continued on parental analgesics, antiemetic, GI and DVT prophylaxis. 2. The patient has been ordered serial labs. Offered about getting a CAT scan of the abdomen and pelvis for evaluation of the dilated proximal ureter and bilateral extrarenal pelvis regarding which the patient's significant past history of kidney stones and history of hematuria in the past and he does not want to pursue a CAT scan of the abdomen and pelvis at this time. 3. The patient will continue on all the therapeutic intervention as above. The patient was reinforced and informed about all the diagnostic testings and results of the diagnostic testing have been discussed in detail on a daily basis with the patient and the patient's . All questions and concerns answered. The patient was also advised that the patient would be able to be discharged once the patient's CPK is down to close to normal and the patient is more clinically, subjectively, and objectively more stable to be discharged. In addition, I have explained every day to the patient about strictly no driving, which he acknowledged understanding. Dictated and electronically signed, not read. Naman Lilly MD [facility]
--- NOTE | 2018-08-03 21:54 | CON ---
DATE: 08/03/2018 HISTORY OF PRESENT ILLNESS: The patient is a 33-year-old male with no formal psychiatric history including outpatient psychiatric followup, medications, inpatient hospitalizations, who was admitted on 07/29/2018 yo the [facility] after new onset witnessed seizure by his . Apparently the was driving him to work around 1 a.m. and she had noticed that he had become unresponsive and experiencing tonic-clonic seizures in his extremities. 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 Psychiatry was consulted because had a conversation with the patient yesterday in the afternoon regarding wanting to harm himself. was concerned because of this statement and so Psychiatry was requested to further evaluate. I met with the patient at bedside. He appears to be tired and mildly sedated due to the suspected pain killers. However, he is well oriented to month, year, location and circumstances. He is cooperative with my questioning, appears well related, future oriented, and expresses appropriate concerns about his current situation. The patient also reports motivation to return to residency and return to his program and has had difficulty decompressing and allowing others to care for him. Nonetheless, he has been cooperative with the recommendation studies, lab work, and there have been no major behavioral issues. He is adamant that he is not suicidal. He was adamant that he does not want to . There have been stressors in his life including the parents' position not to attend their wedding in February. However, overall the patient has been functioning well and the expresses no concerns in this regard. The patient is optimistic about his functioning in the future. I speak with the outside the room and she does not express any actual concerns about him harming himself; however, she does have concerns about his reluctance to accept help for stress and his reluctance to slow down his schedule in the light of current medical issues. Nonetheless, he is not a danger to himself or others. His insight and judgment are considered to be good, however, unless and the only supports he is under the influence of pain killers in which case anybody's insight and judgment would be impaired due to the sedating and disorienting effects. As noted, the patient has no psychiatric history, formal psychiatric history. SOCIAL HISTORY: The patient was born and raised in [place], he attended [employer]. He went to medical school in [place]. 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 He recently his girlfriend of 3 years who used to live in [place] in 02/2018, her name is Monique. Monique confirms the patient has no drug or alcohol issues. They have no children. As noted, the patient works as a surgical nurse practitioner. RELEVANT PSYCHIATRIC MEDICATIONS: Include Atarax 25 mg p.o. every 6 hours p.r.n., Ativan 1 mg IV every 4 hours p.r.n. However, that is received reluctantly, the patient is very reluctant to take benzodiazapines, which can affect his judgment. IMPRESSION: Adjustment disorder with depression and anxiety. There is no indication that there is a serious mood disorder at this time. RECOMMENDATIONS: We will continue Atarax 25 mg p.o. every 6 hours p.r.n. and respect the patient's wishes not to be given benzodiazapines for anxiety. He is really reluctant to take anything that could affect his judgment. Nonetheless, I will start a very low dose Klonopin if he should change his mind as low-dose benzodiazapines can be very effective for anxiety and as long as they are low enough they will not induce sedation. In addition, the patient may be physiologically predisposed to seizures, taking low-dose benzodiazapines might increase that natural threshold provided he takes it regularly. The patient is psychiatrically cleared. Christi Lua MD
[2018-08-03] MEDS: Morphine 2 mg/ml ISec IVP PRN (23:16)
[2018-08-04] MEDS: Sodium Chloride 0.9% 1,000 ML IV SCH ×8 (01:00→23:10)
[2018-08-04] MEDS: clonazePAM 0.125 mg Disinteg Tab PO PRN ×2 (01:00→08:36)
[2018-08-04 07:47] LABS: ALB/GLOB RATIO 1.2 (1.1-1.8); ALBUMIN 3.4 g/dL (3.0-4.8); ALT/SGPT 150 U/L (7-56); AST/SGOT 161 U/L (17-59); BILIRUBIN,DIRECT 0.2 mg/dL (0.0-0.4); BLOOD UREA NITROGEN 12 mg/dL (7-21); CALCIUM 8.1 mg/dL (8.4-10.5); GFR NON-AFRICAN AMERICAN > 60
[2018-08-04] MEDS ORDERED: Potassium Chloride 20 mEq ER Tab PO ONE (08:27)
[2018-08-04] MEDS ORDERED: Magnesium Sulfate 2 gm/50 ml 2 GM/50 ML BAG IVPB ONE (08:27)
--- NOTE | 2018-08-04 08:33 | CP.PCM.PCO ---
Physician Communication Note - Physician Communication Note Physician Communication Note: cleared pt, reconsult as needed.
[2018-08-04 08:39] LABS: CK-MB 0.2 ng/mL (0.0-3.6)
[2018-08-04] MEDS: Pantoprazole 40 mg EC Tab PO SCH ×2 (09:11→09:38)
[2018-08-04] MEDS: Lidocaine 5% Patch TD SCH (09:11)
[2018-08-04] MEDS: Oxycodone/Acetaminophen 5/325 mg Tab PO SCH ×2 (09:12→17:30)
--- NOTE | 2018-08-04 09:16 | CP.PCM.PN ---
<Terese Richards - Last Filed: 08/04/18 11:49> Subjective - Date & Time of Evaluation Date of Evaluation: 08/04/18 Time of Evaluation: 09:13 - Subjective Subjective: Terese Richards DO, PGY-2: Progress Note for Dr. Lilly Patient seen and examined at bedside. He is resting comfortably in his room. Lights off, fan on. He reports no seizure like activity. He reports urinating every 20-30 minutes. He also reports good pain control of his left scapulae; however, on a subsequent encounter patient want to trying getting off Percocet and Toradol. He also request for the appropriate sling for his arm that the orthopedics told him about. I informed him that he is on a low dose of both of these medications, and he is recovering just fine. Otherwise, no adverse events noted. Objective - Vital Signs/Intake and Output Vital Signs (last 24 hours): Temp Pulse Resp BP Pulse Ox 97.4 F L 65 18 117/72 95 08/04/18 06:00 08/04/18 06:00 08/04/18 06:00 08/04/18 06:00 08/04/18 06:00 Intake and Output: 08/04/18 08/04/18 06:59 18:59 Intake Total 6260 Output Total 1300 Balance 4960 - Medications Medications: Current Medications Clonazepam (Klonopin Wafers) 0.125 mg PO Q6 PRN; Protocol PRN Reason: Anxiety Last Admin: 08/04/18 08:36 Dose: 0.125 mg Famotidine (Pepcid) 20 mg PO 1000,2200 [facility]ANKIE Stop: 08/04/18 10:01 Last Admin: 08/03/18 21:35 Dose: 20 mg Heparin Sodium (Porcine) (Heparin) 5,000 units SC Q8 FRANKEI; Protocol Last Admin: 08/04/18 05:05 Dose: 5,000 units Hydroxyzine HCl (Atarax) 25 mg PO Q6H PRN PRN Reason: Itching / Pruritus Last Admin: 08/01/18 14:16 Dose: 25 mg Sodium Chloride (Sodium Chloride 0.9%) 1,000 mls @ 250 mls/hr IV .Q4H FRANKIE Last Admin: 08/04/18 08:32 Dose: 250 mls/hr Magnesium Sulfate (Magnesium Sulfate 2 Gm/50 Ml Water) 2 gm in 50 mls @ 50 mls/hr IVPB ONCE ONE Stop: 08/04/18 09:26 Ketorolac Tromethamine (Toradol) 15 mg IVP Q6 PRN PRN Reason: pain Last Admin: 08/03/18 19:41 Dose: 15 mg Levetiracetam (Keppra) 750 mg PO BID [facility] Last Admin: 08/03/18 17:25 Dose: 750 mg Lidocaine (Lidoderm) 1 ea TD DAILY [facility] Last Admin: 08/03/18 09:38 Dose: 1 ea Lorazepam (Ativan) 1 mg IVP Q4H PRN; Protocol PRN Reason: Seizure activity Last Admin: 07/30/18 22:17 Dose: 1 mg Morphine Sulfate (Morphine) 2 mg IVP Q4H PRN PRN Reason: Pain, severe (8-10) Last Admin: 08/03/18 23:16 Dose: 2 mg Nicotine (Nicoderm Cq) 1 patch TD DAILY [facility] Last Admin: 08/03/18 09:38 Dose: 1 patch Ondansetron HCl (Zofran Inj) 4 mg IVP Q4H PRN PRN Reason: Nausea/Vomiting Last Admin: 08/04/18 04:48 Dose: 4 mg Oxycodone/Acetaminophen (Percocet 5/325 Mg Tab) 1 tab PO BID [facility] Last Admin: 08/03/18 17:25 Dose: Not Given Pantoprazole Sodium (Protonix Ec Tab) 40 mg PO Q12 [facility] Last Admin: 08/03/18 21:35 Dose: 40 mg - Labs Labs: 08/02/18 06:30 08/04/18 07:00 PT 10.1 SECONDS (9.4-12.5) 07/29/18 04:15 INR 0.91 07/29/18 04:15 APTT 32.1 Seconds (26.9-38.3) 07/29/18 04:15 - Constitutional Appears: Well, Non-toxic - Head Exam Head Exam: ATRAUMATIC, NORMOCEPHALIC - Eye Exam Eye Exam: EOMI, Normal appearance - ENT Exam ENT Exam: Mucous Membranes Moist, Normal Oropharynx - Neck Exam Neck Exam: Normal Inspection - Respiratory Exam Respiratory Exam: Clear to Ausculation Bilateral, NORMAL BREATHING PATTERN. absent: Accessory Muscle Use - Cardiovascular Exam Cardiovascular Exam: RRR, +S1, +S2 - GI/Abdominal Exam GI & Abdominal Exam: Soft, Normal Bowel Sounds - Extremities Exam Extremities Exam: Normal Inspection - Back Exam Back Exam: NORMAL INSPECTION. absent: CVA tenderness (L), CVA tenderness (R) - Neurological Exam Neurological Exam: Alert, Awake, Oriented x3 Neuro motor strength exam: Left Upper Extremity: 5, Right Upper Extremity: 5, Left Lower Extremity: 5, Right Lower Extremity: 5 - Psychiatric Exam Psychiatric exam: Normal Affect, Normal Mood - Skin Skin Exam: Dry, Intact, Normal Color, Warm Assessment and Plan - Assessment and Plan (Free Text) Assessment: 33 year old male with no known past medical history who was brought in via EMS for generalized seizures. 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 Soto consulted, greatly appreciate guidance and insight - Repeat EEG showed normalization of brain waves with patient on Keppra - Ativan 1 mg q4h PRN for seizure like activity 2) Adjustment disorder with depression and anxiety, no serious mood disorder - Continue with Klonopin wafer 0.125 mg q6h PRN for anxiety - Greatly appreciate psychiatry consultation and recommendations 3) Tobacco dependence - Nicotine patch 21 mg TD 4) Comminuted fracture of left scapulae - Orthopedic consulted, Dr. Irizarry - Continue with correct sling and analgesic regimen 5) Rhabdomyolysis - CPK maximally elevated at 88,000; trending down to 6835 as of today - Continue with 200 mls/hr of NS - Creatinine and UO are normal - Continue to monitor Urine Output, LFT's, and kidney function 6) Transaminitis - Secondary to rhabdomyolysis - Abdominal US reports diffuse increased echogenicity in the liver may reflect hepatic steatosis however parenchymal infectious/inflammatory etiologies cannot be entirely excluded. Clinical and laboratory correlation is advised. Cholelithiasis. Bilateral extrarenal pelvis and mild dilatation of the proximal ureters. If clinically indicated correlation with CT scan of the abdomen and pelvis may be performed for complete evaluation of the renal collecting systems. - AST/ALT now 161/150 and trending downward 6) Bilateral extrarenal pelvis and mild dilatation of proximal ureters - This is secondary to the patient receiving NS 250 mls/hr for his rhabdomyolysis, this is physiologic dilatation of the renal pelvis and proximal ureters, not pathologic - No further work-up needed 6) DVT/GI prophylaxis - Heparin 5000 units q8 - Protonix 40 mg once daily Case was reviewed and discussed with attending physician, Dr. Lilly <Naman Lilly - Last Filed: 08/06/18 10:31> Objective - Vital Signs/Intake and Output Vital Signs (last 24 hours): Temp Pulse Resp BP Pulse Ox 97.4 F L 56 L 20 119/73 97 08/05/18 12:00 08/05/18 12:00 08/05/18 12:00 08/05/18 12:00 08/05/18 00:01 - Labs Labs: 08/02/18 06:30 08/05/18 06:15 PT 10.1 SECONDS (9.4-12.5) 07/29/18 04:15 INR 0.91 07/29/18 04:15 APTT 32.1 Seconds (26.9-38.3) 07/29/18 04:15 Attending/Attestation - Attestation I have personally seen and examined this patient.: Yes I have fully participated in the care of the patient.: Yes I have reviewed all pertinent clinical information, including history, physical exam and plan: Yes Notes (Text): Please see/read my dictated notes.
[2018-08-04 12:31] VITALS: RESP 20
--- NOTE | 2018-08-04 13:20 | PN ---
DATE: 08/04/2018 SUBJECTIVE: The patient is in room 261 bed 1. Overnight nurse's notes were reviewed. The patient had an episode of shoulder pain and headache for which the patient was medicated with positive relief. No seizure activity was noted, documented or witnessed. PHYSICAL EXAMINATION: VITAL SIGNS: T-max 97.4, telemetry normal sinus rhythm, heart rate 61, blood pressure 117/72, respirations 18, O2 sat 95%. HEENT: The patient's head examination is normocephalic, atraumatic. HEENT examination shows pinkish pale conjunctivae. Anicteric sclerae. Dry oral mucosa. No neck rigidity. CHEST: Examination is symmetrical. LUNGS: Examination shows no audible crackle, rales or wheezing. CARDIOVASCULAR: S1, S2, regular rhythm. ABDOMEN: Soft, positive bowel sound, no palpable hepatosplenomegaly. No costovertebral angle tenderness. EXTREMITIES: Positive left upper extremity decreased range of motion in the sling because of the scapular fracture. Lower extremity shows no pitting edema, no calf tenderness, no Homans' sign. NEUROLOGIC: The patient is alert, awake, oriented x3. Cranial nerves II through XII limited. Gait examination is not tested. VASCULAR: Palpable pulses. DIAGNOSTICS: 08/04/2018, CBC is pending today. Sodium 139, potassium 3.7, chloride 108, CO2 of 25, BUN 12, creatinine 0.7, glucose 91, calcium 8.1, phosphorus 5, magnesium 1.7. AST has come down to 161. ALT has come down to 150. CPK 6835, peak CPK of greater than 88,000. The patient was evaluated by Psychiatry because of the patient's concerned that the patient expressed suicidal ideation. According to the Psychiatry evaluation, the patient was adamant about any suicidal, homicidal ideation or intent.. Psychiatry note was noted and recommendation was reviewed. IMPRESSION: 1. Idiopathic generalized seizure and epilepsy. 2. Juvenile myoclonic epilepsy. 3. Witnessed tonic-clonic seizure with tongue biting. 4. New-onset idiopathic generalized seizure and epilepsy. 5. Acute severe rhabdomyolysis symptomatic with symptoms of muscle cramps. 6. Borderline hypokalemia and borderline hypomagnesemia. 7. Transaminitis. 8. Cholelithiasis. 9. Fatty liver and increased echogenicity of the hepatic parenchyma with fatty infiltration of the liver and hepatic steatosis. 10. Bilateral extrarenal pelvis and proximal ureteral dilatation with history of nephrolithiasis. 11. Adjustment disorder with anxiety and depression. 12. Dilutional anemia and dilutional hypokalemia and hypomagnesemia. 13. Cholelithiasis. 14. Hypovolemia. 1. New-onset idiopathic generalized epilepsy and juvenile myoclonic epilepsy with witnessed seizure with tongue biting and postictal state. 2. Rhabdomyolysis, secondary to seizure. 3. Borderline hypokalemia. 4. Borderline hypomagnesemia. 5. Transaminitis. 6. Severe rhabdomyolysis with elevated CPK greater than 88,000, down to 21,000. 7. Cholelithiasis. 8. Bilateral extrarenal pelvis and dilatation of the proximal ureter. 9. Hepatic steatosis and fatty liver. 10. Diffuse increased echogenicity of the liver. 11. History of kidney stones from acute fatty liver. 12. History of cholelithiasis. 1. 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 2. Left shoulder fracture. 3. 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 4. 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 5. Transient leukocytosis. 6. Rhabdomyolysis with a CPK of greater than 88,000. 7. Transaminitis. 8. Trace proteinuria, pyuria, bacteriuria. 9. T9 inferior endplate mild compression deformity. 10. Gait dysfunction. 11. Left mid scapular impacted comminuted fracture sparing the upper portion. 12. Sinus tachycardia. 13. Left scapular body fracture. 14. History of cholelithiasis. 15. Idiopathic generalized epilepsy with abnormal video EEG. 16. History of nicotine dependence. 17. Questionable allergic reaction, etiology undetermined. 1. Witnessed seizure disorder, new onset with abnormal video electroencephalogram with presence of idiopathic generalized epilepsy and clinical seizure. 2. Rhabdomyolysis with elevated creatine phosphokinase. 3. Leukocytosis. 4. Mild dilutional anemia. 5. Transaminitis, probably secondary to rhabdomyolysis. 6. History of cholelithiasis. 7. Trace proteinuria, pyuria, and bacteriuria. 8. T9 mild compression deformity. 9. Impacted comminuted left mid scapular fracture. 10. Deconditioning. 11. Gait dysfunction. 12. Sinus tachycardia. 13. Questionable allergic reaction with hives, etiology undetermined. 14. Nicotine dependence. 1. Idiopathic generalized seizure and witnessed seizure with mouth foaming and tongue biting. 2. Rhabdomyolysis. 3. T9 compression deformity, age undetermined. 4. Left mid scapula impacted comminuted fracture. 5. Hypotension. 6. Mild normocytic anemia. 7. Deconditioning. 8. Musculoskeletal pain, probably secondary to rhabdomyolysis. 1. New-onset witnessed seizure with episode of mouth foaming and tongue biting. 2. Comminuted left scapular fracture. 3. Left upper extremity pain secondary to comminuted left scapular fracture. 4. Tachycardia. 5. Leukocytosis. 6. Questionable relative thrombocytopenia. 7. Questionable transaminitis. 8. New-onset seizure disorder, etiology undetermined. 1. New-onset witnessed seizure with generalized seizure with postictal state. 2. Left scapular comminuted fracture with vertical and transverse component. 3. Postictal state. 4. Witnessed generalized seizure with tongue biting. 5. Tachycardia. 6. Sinus tachycardia. 7. Postictal state with lethargy. 8. Leukocytosis probably reactive. 9. Questionable increased anion gap metabolic acidosis. 10. Prerenal kidney injury. 11. Trace proteinuria and pyuria and bacteriuria. 12. Witnessed seizure with foaming of the mouth and tongue biting. 13. Most likely new-onset seizure disorder or seizure. PLAN: At this time, the patient is to be continued on IV fluid hydration at 250 mL an hour with serial monitoring of labs including CPK. The patient has been ordered potassium supplementation and magnesium sulfate rider. The patient has been ordered GI and DVT prophylaxis, both pharmacological and nonpharmacological. The patient has been ordered out of bed to chair, physical therapy, occupational therapy with no weightbearing and lifting of the left upper extremity. The patient's present consultation as Orthopedics, Neurology, and Psychiatry. The patient was started on p.r.n. Klonopin 0.125 mg p.o. every 6 hours p.r.n The patient is presently on hydroxyzine and Atarax. The patient is on heparin 5000 units subcutaneous every 8 hours. The patient is on IV Protonix, IV fluid. The patient is on Keppra. At present, the patient will be continued on all the above therapeutic intervention as per the MAR of today. The patient's condition, diagnosis, test results have been extensively and daily discussed and explained to the patient and the patient's at length and all questions concerned answered to their satisfaction. Dictated and electronically signed, not read. Naman Lilly MD [facility]
--- NOTE | 2018-08-04 16:06 | CP.PCM.PN ---
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 EEG shows no interictal discharges, no correlation with events that were marked by . He is tolerating 750 mg IV keppra well, and is now seizure free. Appreciate Dr. Hemphill's and Dr. Jarod Braun orthopedic surgery consult. They recommend conservative treatment at this time, and physical therapy for about 3 months. Objective - Vital Signs/Intake and Output Vital Signs (last 24 hours): Temp Pulse Resp BP Pulse Ox 98.4 F 86 16 124/72 98 08/01/18 06:00 08/01/18 06:00 08/01/18 06:00 08/01/18 06:00 08/01/18 06:00 Intake and Output: 08/01/18 08/01/18 06:59 18:59 Intake Total 4248 Output Total 4000 Balance 248 - Medications Medications: Current Medications Acetaminophen (Tylenol 325mg Tab) 650 mg PO Q6 PRN PRN Reason: TEMP>=99.5F Last Admin: 07/29/18 23:45 Dose: 650 mg Acetaminophen (Tylenol 650 Mg Supp) 650 mg RC Q6H PRN PRN Reason: TEMP>=99.5F Last Admin: 07/29/18 17:48 Dose: 650 mg Heparin Sodium (Porcine) (Heparin) 5,000 units SC Q8 FRANKIE; Protocol Last Admin: 08/01/18 06:24 Dose: 5,000 units Sodium Chloride (Sodium Chloride 0.9%) 1,000 mls @ 250 mls/hr IV .Q4H [facility] Levetiracetam (Keppra) 750 mg PO BID [facility] Lidocaine (Lidoderm) 1 ea TD DAILY [facility] Last Admin: 08/01/18 10:26 Dose: 1 ea Lorazepam (Ativan) 1 mg IVP Q4H PRN; Protocol PRN Reason: Seizure activity Last Admin: 07/30/18 22:17 Dose: 1 mg Morphine Sulfate (Morphine) 2 mg IVP Q4H PRN PRN Reason: Pain, severe (8-10) Last Admin: 08/01/18 06:55 Dose: 2 mg Nicotine (Nicoderm Cq) 1 patch TD DAILY [facility] Last Admin: 08/01/18 10:25 Dose: 1 patch Ondansetron HCl (Zofran Inj) 4 mg IVP Q4H PRN PRN Reason: Nausea/Vomiting Oxycodone/Acetaminophen (Percocet 5/325 Mg Tab) 1 tab PO BID [facility] Last Admin: 08/01/18 10:26 Dose: 1 tab Pantoprazole Sodium (Protonix Ec Tab) 40 mg PO Q12 [facility] Last Admin: 08/01/18 10:26 Dose: 40 mg - Labs Labs: 08/01/18 08:20 08/01/18 08:20 PT 10.1 SECONDS (9.4-12.5) 07/29/18 04:15 INR 0.91 07/29/18 04:15 APTT 32.1 Seconds (26.9-38.3) 07/29/18 04:15 Assessment and Plan - Assessment and Plan (Free Text) Assessment: 33 yr old male with primary generalized epilepsy, now on 750 mg bid of keppra doing well. Scapular fracture: awaiting orthopedic consult. Plan : 1. Continue keppra, repeat video eeg. DR. alicia Neurology
[2018-08-04] MEDS: Morphine 2 mg/ml ISec IVP PRN (23:10)
[2018-08-05] MEDS ORDERED: DiphenhydrAMINE 50 mg/ml Inj IVP STA (01:03)
[2018-08-05] MEDS: Sodium Chloride 0.9% 1,000 ML IV SCH ×2 (02:30→05:00)
[2018-08-05 05:50] VITALS: O2SAT 97
[2018-08-05 07:13] LABS: ALB/GLOB RATIO 1.2 (1.1-1.8); ALBUMIN 3.1 g/dL (3.0-4.8); ALT/SGPT 155 U/L (7-56); AST/SGOT 106 U/L (17-59); BILIRUBIN,DIRECT 0.1 mg/dL (0.0-0.4); BLOOD UREA NITROGEN 15 mg/dL (7-21); CALCIUM 8.4 mg/dL (8.4-10.5); GFR NON-AFRICAN AMERICAN > 60
[2018-08-05 07:59] LABS: CK-MB 0.3 ng/mL (0.0-3.6)
[2018-08-05] MEDS ORDERED: Potassium Chloride 20 mEq ER Tab PO ONE (09:29)
[2018-08-05] MEDS ORDERED: Magnesium Sulfate 2 gm/50 ml 2 GM/50 ML BAG IVPB ONE (09:29)
[2018-08-05] MEDS ORDERED: Sodium Chloride 0.9% 1,000 ML IV SCH (09:45)
[2018-08-05] MEDS: Pantoprazole 40 mg EC Tab PO SCH (09:48)
[2018-08-05] MEDS: Lidocaine 5% Patch TD SCH (09:51)
[2018-08-05] MEDS: Oxycodone/Acetaminophen 5/325 mg Tab PO SCH (09:52)
--- NOTE | 2018-08-05 11:50 | DS ---
HISTORY: The patient is in room 261, bed 1. Overnight nurse's notes were reviewed. The patient had some complaints of shoulder pain for which the patient was given analgesics. The patient slept well. No seizure activity was documented, witnessed, or noted. No other adverse events were noted, documented, or called for. PHYSICAL EXAMINATION: OVERNIGHT VITAL SIGNS: T-max 97.7. Telemetry normal sinus rhythm, heart rate 69, blood pressure 114/75, respirations 20, O2 sat 97%. The patient is in room 261, bed 1. HEENT: Head is normocephalic, atraumatic. Eyes; shows pinkish conjunctivae. Anicteric sclerae. No oropharyngeal lesion. NECK: No neck rigidity. CHEST: Symmetrical. LUNGS: Shows no audible crackle, rales or wheezing. CARDIOVASCULAR: Shows S1, S2, regular rhythm. No audible murmur, gallop, or rub. ABDOMEN: Soft, positive bowel sound, no palpable hepatosplenomegaly. GENITALIA: Male. RECTAL: Deferred. EXTREMITIES: Shows positive left upper extremity decreased range of motion and sling because of the left scapular fracture. Lower extremity shows no pitting edema, no calf tenderness, no Homans' sign. NEUROLOGIC: The patient is alert, awake, oriented x3. He is able to move right upper and bilateral lower extremity without assistance, decreased range of motion of the left upper extremity. Gait examination is not tested. Vascular examination, palpable pulses. Cranial nerves II-XII limited. PSYCHIATRIC: Negative for anxiety, depression. Negative for suicidal, homicidal ideation. Negative for auditory, visual hallucination. DIAGNOSTICS: On 08/05/2018; sodium 139, potassium 3.6, chloride 108, CO2 of 22, BUN 15, creatinine 0.8, glucose 99, calcium 8.4, phosphorus 5.1, magnesium 1.8. AST is down to 106, ALT is 155. CPK is down to 2129. FINAL IMPRESSION, PLAN, AND DISCHARGE DIAGNOSES: 1. 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 2. New onset seizure with tongue biting and witnessed new onset seizure. 3. Acute symptomatic rhabdomyolysis with elevated CPK of greater than 88,000. 4. Transaminitis. 5. Hepatic steatosis. 6. Cholelithiasis. 7. Dilutional hypomagnesemia and hypokalemia. 8. Bilateral extrarenal pelvis with dilated proximal ureter. 9. Fatty liver. 10. Diffuse increased echogenicity of the liver. 11. Obesity with elevated body mass index. 12. Dilutional anemia. 13. Questionable adjustment disorder with anxiety and depression. 14. History of nephrolithiasis and hematuria. 1. Idiopathic generalized seizure and epilepsy. 2. Juvenile myoclonic epilepsy. 3. Witnessed tonic-clonic seizure with tongue biting. 4. New-onset idiopathic generalized seizure and epilepsy. 5. Acute severe rhabdomyolysis symptomatic with symptoms of muscle cramps. 6. Borderline hypokalemia and borderline hypomagnesemia. 7. Transaminitis. 8. Cholelithiasis. 9. Fatty liver and increased echogenicity of the hepatic parenchyma with fatty infiltration of the liver and hepatic steatosis. 10. Bilateral extrarenal pelvis and proximal ureteral dilatation with history of nephrolithiasis. 11. Adjustment disorder with anxiety and depression. 12. Dilutional anemia and dilutional hypokalemia and hypomagnesemia. 13. Cholelithiasis. 14. Hypovolemia. 1. New-onset idiopathic generalized epilepsy and juvenile myoclonic epilepsy with witnessed seizure with tongue biting and postictal state. 2. Rhabdomyolysis, secondary to seizure. 3. Borderline hypokalemia. 4. Borderline hypomagnesemia. 5. Transaminitis. 6. Severe rhabdomyolysis with elevated CPK greater than 88,000, down to 21,000. 7. Cholelithiasis. 8. Bilateral extrarenal pelvis and dilatation of the proximal ureter. 9. Hepatic steatosis and fatty liver. 10. Diffuse increased echogenicity of the liver. 11. History of kidney stones from acute fatty liver. 12. History of cholelithiasis. 1. 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 2. Left shoulder fracture. 3. 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 4. 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 5. Transient leukocytosis. 6. Rhabdomyolysis with a CPK of greater than 88,000. 7. Transaminitis. 8. Trace proteinuria, pyuria, bacteriuria. 9. T9 inferior endplate mild compression deformity. 10. Gait dysfunction. 11. Left mid scapular impacted comminuted fracture sparing the upper portion. 12. Sinus tachycardia. 13. Left scapular body fracture. 14. History of cholelithiasis. 15. Idiopathic generalized epilepsy with abnormal video EEG. 16. History of nicotine dependence. 17. Questionable allergic reaction, etiology undetermined. 1. Witnessed seizure disorder, new onset with abnormal video electroencephalogram with presence of idiopathic generalized epilepsy and clinical seizure. 2. Rhabdomyolysis with elevated creatine phosphokinase. 3. Leukocytosis. 4. Mild dilutional anemia. 5. Transaminitis, probably secondary to rhabdomyolysis. 6. History of cholelithiasis. 7. Trace proteinuria, pyuria, and bacteriuria. 8. T9 mild compression deformity. 9. Impacted comminuted left mid scapular fracture. 10. Deconditioning. 11. Gait dysfunction. 12. Sinus tachycardia. 13. Questionable allergic reaction with hives, etiology undetermined. 14. Nicotine dependence. 1. Idiopathic generalized seizure and witnessed seizure with mouth foaming and tongue biting. 2. Rhabdomyolysis. 3. T9 compression deformity, age undetermined. 4. Left mid scapula impacted comminuted fracture. 5. Hypotension. 6. Mild normocytic anemia. 7. Deconditioning. 8. Musculoskeletal pain, probably secondary to rhabdomyolysis. 1. New-onset witnessed seizure with episode of mouth foaming and tongue biting. 2. Comminuted left scapular fracture. 3. Left upper extremity pain secondary to comminuted left scapular fracture. 4. Tachycardia. 5. Leukocytosis. 6. Questionable relative thrombocytopenia. 7. Questionable transaminitis. 8. New-onset seizure disorder, etiology undetermined. 1. New-onset witnessed seizure with generalized seizure with postictal state. 2. Left scapular comminuted fracture with vertical and transverse component. 3. Postictal state. 4. Witnessed generalized seizure with tongue biting. 5. Tachycardia. 6. Sinus tachycardia. 7. Postictal state with lethargy. 8. Leukocytosis probably reactive. 9. Questionable increased anion gap metabolic acidosis. 10. Prerenal kidney injury. 11. Trace proteinuria and pyuria and bacteriuria. 12. Witnessed seizure with foaming of the mouth and tongue biting. 13. Most likely new-onset seizure disorder or seizure. PLAN: At this time, the patient will be given magnesium sulfate rider and oral potassium supplementation for dilutional hypokalemia and hypomagnesemia. The patient is presently to be continued on IV fluid 250 mL an hour. The patient will be considered for discharge today. If the patient and the agrees to follow up within the next few days and the patient agrees to comply with increased fluid intake to correct rhabdomyolysis. The patient will be considered for discharge today. The patient's discharge medications will be as per the ambulatory orders and as per discharge medications and new prescriptions which will include Keppra 750 twice a day, Percocet 5/325 one tablet twice a day p.r.n. for 5 days supply. The patient is to be given nicotine patch 21 mg daily in addition, the patient has been also advised no driving. The patient is advised to follow up with Dr. Lilly, within 1 week. The patient and the has been advised strict compliance with the physicians recommendation and compliance with the therapeutic regimen. The patient and the promises that the patient will comply with recommendations by all the physicians given to the patient in addition, the patient was advised limited activity, no alcohol, no smoking and no driving. Time spent in the discharge process more than 45 minutes. Dictated and electronically signed, not read. Naman Lilly MD [email or web address]
[2018-08-05 12:01] VITALS: BP 119/73; PULSE 56; TEMP 97.4
== END 2018-08-05 14:44 | disposition home or self-care (01) | DRG 101 ==
LOC: ED 04:04 → ERH 05:12 → 2RNO 15:35
PROVIDERS: ADMIT Hospitalist; ATTEND Internal Medicine
PROC: 4A00X4Z Measurement of Central Nervous Electrical Activity, External Approach (ICD-10-PCS; principal; 2018-07-30)
DX: G40.309 Generalized idiopathic epilepsy and epileptic syndromes, not intractable, without status epilepticus (principal); M62.82 Rhabdomyolysis; E87.2 Acidosis; G40.B09 Juvenile myoclonic epilepsy, not intractable, without status epilepticus; S42.112A Displaced fracture of body of scapula, left shoulder, initial encounter for closed fracture; E86.1 Hypovolemia; F43.23 Adjustment disorder with mixed anxiety and depressed mood; F17.210 Nicotine dependence, cigarettes, uncomplicated; D64.9 Anemia, unspecified; K76.0 Fatty (change of) liver, not elsewhere classified; K80.20 Calculus of gallbladder without cholecystitis without obstruction; D72.829 Elevated white blood cell count, unspecified; R26.9 Unspecified abnormalities of gait and mobility; E87.6 Hypokalemia; E83.42 Hypomagnesemia; W19.XXXA Unspecified fall, initial encounter; Z87.442 Personal history of urinary calculi; Z82.49 Family history of ischemic heart disease and other diseases of the circulatory system